=== PATIENT | female | born 1985 | race Caucasian/White ===

== ENCOUNTER 2016-11-29 16:01 | Emergency (ER) | payer MEDICAID ==
[~2016-11-29] VITALS: Ht 158.8 cm; Wt 57.5 kg
[~2016-11-29 16:01] MED LIST: BUSP10TA PO; IBUP400T20 PO
[2016-11-29 16:03] VITALS: BP 143/69; PULSE 106; RESP 16; TEMP 97.7; O2SAT 97
--- NOTE | 2016-11-29 16:25 | PD ---
Physical Exam Date Seen by Provider: Nov 29, 2016 Time Seen by Provider: 16:23 Narrative Pt is a 31 year old female presenting to the ED with c/o sinus pain, pressure, dull frontal headaches, congestion. Symptoms started a week ago. Pt has been taking OTC tylenol and excedrin. Pt denies any significant PMHx. VSS. Awaiting bed placement. Data Data Last Documented VS Vital Signs Date Time Temp Pulse Resp B/P Pulse Ox O2 Delivery O2 Flow Rate FiO2 11/29/16 16:03 97.7 106 16 143/69 97 Room Air MDM Supervised Visit with ANAND: Deneen Dangelo Nov 29, 2016 16:25
--- NOTE | 2016-11-29 16:30 | PD ---
HPI . sinus infection Chief Complaint: sinus pressure off and on for several weeks Time Seen by Provider: 16:30 Travel History International Travel<30 days: No Contact w/Intl Traveler<30days: No Traveled to known affect area: No History of Present Illness HPI 31-year-old female with history of allergies here with complaints of recurrent sinus pressure. Patient says she's been having intermittent sinus pressure for the past several weeks. She's been trying to take dgii-azf-wtxlfaj medications to improve her symptoms, but they have not been working. She tells me that her symptoms have become so severe that she's been having increased frequency of headaches and facial pressure. She denies any fever or chills. She has no other complaints. [facility] Past Medical History Diabetes: No Respiratory: No (NON SMOKER) LMP: LMP 14 NOVEMBER 2016 Menopausal: No : 3 Para: 1 Miscarriage: 0 : 2 Ectopic : No Ovarian Cysts: No Dilation and Curettage (D&C): No Tubal Ligation: No Past Surgical History Section: No Hysterectomy: No Other Surgery: Yes (HERNIA REPAIR) Social History Alcohol Use: Yes Tobacco Use: Yes Substance Use: Yes (IV DILAUDID) Allergies-Medications (Allergen,Severity, Reaction): Coded Allergies: Penicillin (Verified Allergy, Intermediate, 05/23/16) Reported Meds & Prescriptions Reported Meds & Active Scripts Active Zithromax Z-Rick (Azithromycin) 250 Mg Dspk 250 Mg PO DIRECTED 500 MG (2 tabs) day 1, then 1 tab days 2-5. Reported Ibuprofen 400 Mg Tab 400 Mg PO BID PRN Buspirone Hcl (Buspirone HCl) 10 Mg Tab 15 Mg PO TID Review of Systems General / Constitutional: No: Fever Eyes: No: Visual changes HENT: Positive: Congestion, No: Headaches Cardiovascular: No: Chest Pain or Discomfort Respiratory: Positive: Cough, No: Shortness of Breath Gastrointestinal: No: Abdominal Pain Genitourinary: No: Dysuria Musculoskeletal: No: Pain Skin: No Rash Neurologic: No: Weakness Psychiatric: No: Depression Endocrine: No: Polydipsia Hematologic/Lymphatic: No: Easy Bruising Physical Exam Narrative GENERAL: AAO x 3, no acute distress, Well-nourished, well-developed patient. SKIN: Warm and dry. No visible rashes or bruising. HEAD: Normocephalic and atraumatic. EYES: No scleral icterus. No injection or drainage. EOM intact, PERRLA ENT: No nasal drainage noted. Mucous membranes pink. Airway patent. TM with air bubbles, maxillary sinus tenderness, inflamed nasal turbinates NECK: Supple, trachea midline. No JVD. no lymphadenopathy CARDIOVASCULAR: Regular rate and rhythm without murmurs, gallops, or rubs. RESPIRATORY: Breath sounds equal bilaterally. No accessory muscle use. No rhonchi or rales. GASTROINTESTINAL: Abdomen soft, non-tender, nondistended. EXTREMITIES: No cyanosis or edema. BACK: Nontender without obvious deformity. No CVA tenderness. PSYCH: AAO x 3, normal affect. Data Data Last Documented VS Vital Signs Date Time Temp Pulse Resp B/P Pulse Ox O2 Delivery O2 Flow Rate FiO2 11/29/16 16:03 97.7 106 16 143/69 97 Room Air MDM Medical Decision Making Medical Screen Exam Complete: Yes Emergency Medical Condition: Yes Medical Record Reviewed: Yes Differential Diagnosis sinusitis, less likely bronchitis, less likely PNA Narrative Course 31-year-old female with history of allergies here with complaints of recurrent sinus pressure. Patient says she's been having intermittent sinus pressure for the past several weeks. She's been trying to take bahy-pvb-sguoosv medications to improve her symptoms, but they have not been working. She tells me that her symptoms have become so severe that she's been having increased frequency of headaches and facial pressure. She denies any fever or chills. She has no other complaints. Patient seen and examined. She appears to have acute sinusitis. She has penicillin allergy so we will go ahead and treat with azithromycin. She is taken in the past and tolerated well. Recommend antihistamine for the next 7 days. Explained that her symptoms will likely fluctuate based on the pollen in the air. Follow-up with primary care provider. Patient verbalized understanding of instructions, questions were answered, and thanked me for their care. I advised them if their condition worsens, please return to the nearest emergency room for further care. Diagnosis Primary Impression: Acute sinusitis Qualified Code: J01.01 - Acute recurrent maxillary sinusitis Patient Instructions: Sinusitis (ED) Additional Instructions: Please return to emergency department if your symptoms return or worsen. Follow up with your primary care provider. Take medications as prescribed. You can try an [id number]-tqducpn Claritin, Zyrtec or Manuela for the next 7 days. Med/Other Pt SpecificInfo: Prescription(s) given Scripts Azithromycin (Zithromax Z-Rick)250 Mg [id number] Mg PO DIRECTED #1 DSPK Ref 0 500 MG (2 tabs) day 1, then 1 tab days 2-5. Prov:Sandra Beltran DO 11/29/16 Disposition: 01 DISCHARGE HOME Condition: Stable Debra Sauceda Nov 29, 2016 16:30
[2016-11-29] MEDS ORDERED: ZITHTAB PO (16:33)
[2016-11-29] MEDS ORDERED: BUSP15TA PO (16:40)
[2016-11-29] MEDS ORDERED: TRAZ50TA12 PO (16:40)
[2016-11-29] MEDS ORDERED: ZOLO100T PO (16:40)
== END 2016-11-29 16:42 | disposition home or self-care (01) ==
LOC: NEPK 16:01
DX: J01.90 Acute sinusitis, unspecified (principal); Z72.0 Tobacco use
CPT/HCPCS: 99283

== ENCOUNTER 2017-01-17 09:35 | Emergency (ER) | payer MEDICAID ==
[~2017-01-17] VITALS: Ht 157.5 cm; Wt 57.0 kg
[~2017-01-17 09:35] MED LIST changes: -BUSP10TA PO; +BUSP15TA PO; -IBUP400T20 PO; +TRAZ50TA12 PO; +ZITHTAB PO; +ZOLO100T PO
[2017-01-17 09:36] VITALS: BP 118/76; PULSE 91; RESP 18; TEMP 98.5; O2SAT 98
[2017-01-17] MEDS ORDERED: CIPR-9 PO (09:50)
[2017-01-17] MEDS ORDERED: cefTRIAXone 250 MG VIAL IM ONE (10:15)
[2017-01-17] MEDS ORDERED: LIDOCAINE HCL 1% 50 ML VIAL IM ONE (10:15)
[2017-01-17] MEDS ORDERED: METR-1 PO (10:19)
[2017-01-17] MEDS ORDERED: ZITHTAB PO (10:19)
--- NOTE | 2017-01-17 10:19 | PD ---
HPI . 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 Onset was 4 days. She denies any pelvic pain or dyspareunia. States that the discharge is so bad that she's actually been using a tampon. In addition, the patient has a cough and sore throat. She has had that for about a week. She states that she was running a fever at the onset of her symptoms. She was in a detox facility at that time and was given Cipro. She has been taking the Cipro with no relief of her symptoms. She states that her throat pain is a 7/10. PFSH Past Medical History Depression: Yes Diabetes: No Patient Takes Glucophage: No Diminished Hearing: No Respiratory: No (NON SMOKER) Tetanus Vaccination: > 5 Years ?: Not LMP: 07 jan 2017 Menopausal: No : 4 Para: 1 Miscarriage: 1 : 2 Ectopic : No Ovarian Cysts: No Dilation and Curettage (D&C): No Tubal Ligation: No Past Surgical History Abdominal Surgery: Yes (hernia repair) Section: No Hysterectomy: No Other Surgery: Yes (HERNIA REPAIR) Social History Alcohol Use: No Tobacco Use: Yes (/ ppd) Substance Use: Yes (cocaine and opiates last January 12/2017) Allergies-Medications (Allergen,Severity, Reaction): Coded Allergies: Penicillin (Verified Allergy, Intermediate, 05/23/16) Reported Meds & Prescriptions Reported Meds & Active Scripts Active Reported Cipro (Ciprofloxacin HCl) 500 Mg Tab 500 Mg PO BID Zoloft (Sertraline HCl) 100 Mg Tab 100 Mg PO DAILY Buspirone (Buspirone HCl) 15 Mg Tab 15 Mg PO DAILY Trazodone (Trazodone HCl) 50 Mg Tab 50 Mg PO HS Review of Systems Except as stated in HPI: all other systems reviewed are Neg General / Constitutional: Positive: Fever, Chills HENT: Positive: Sore Throat Respiratory: Positive: Cough Genitourinary: Positive: Discharge, No: Urgency, Frequency, Dysuria, Pelvic Pain Physical Exam Narrative Vital Signs Date Time Temp Pulse Resp B/P Pulse Ox O2 Delivery O2 Flow Rate FiO2 6/7/17 09:36 98.5 91 18 118/76 98 Room Air GENERAL: Awake and alert and in no acute distress. SKIN: Warm and dry. HEAD: Atraumatic. Normocephalic. EYES: Pupils equal and round. ENT: No nasal bleeding or discharge. Mucous membranes pink and moist. She does have erythema of the oropharynx. There is no tonsillar enlargement or exudate. NECK: Trachea midline. Neck is supple. CARDIOVASCULAR: Regular rate and rhythm. Heart sounds are normal. RESPIRATORY: No accessory muscle use. Lungs are clear with full air movement throughout. GASTROINTESTINAL: Abdomen soft, non-tender, nondistended. : Yellow discharge from the cervical os. Positive cervical motion tenderness. Her bimanual exam however is benign. She has no adnexal tenderness or masses. MUSCULOSKELETAL: No obvious deformities. No edema. NEUROLOGICAL: Awake and alert. No obvious cranial nerve deficits. Motor grossly within normal limits. Normal speech. PSYCHIATRIC: Appropriate mood and affect; insight and judgment normal. Data Data Last Documented VS Vital Signs Date Time Temp Pulse Resp B/P Pulse Ox O2 Delivery O2 Flow Rate FiO2 01/17/17 09:36 98.5 91 18 118/76 98 Room Air MDM Medical Decision Making Medical Screen Exam Complete: Yes Emergency Medical Condition: Yes Differential Diagnosis Differential diagnosis of vaginal discharge includes but is not limited to physiologic discharge, yeast infection, bacterial vaginosis, sexually transmitted disease. Narrative Course Patient presents with 2 complaints. The first complaint is a purulent vaginal discharge. Exam is consistent with PID. Her second complaint is a cough and sore throat which have failed to improve with Cipro. I'll not test her for strep. She will be treated with Zithromax to cover chlamydia. This should also cover strep. Diagnosis Primary Impression: Pelvic inflammatory disease Additional Impressions: Pharyngitis Qualified Code: J02.9 - Pharyngitis, unspecified etiology Cough Patient Instructions: Acute Cough (ED), General Instructions, Pelvic Inflammatory Disease (DC), Pharyngitis (DC) Med/Other Pt SpecificInfo: Prescription(s) given, Med Stopped Scripts Metronidazole (Flagyl)500 Mg [id number] Mg PO BID 7 Days Ref 0 Prov:Cristina Diaz MD 01/17/17 Azithromycin (Zithromax Z-Rick)250 Mg [id number] Mg PO DIRECTED #1 DSPK Ref 0 500 MG (2 tabs) day 1, then 1 tab days 2-5. Prov:Cristina Diaz MD 01/17/17 Disposition: 01 DISCHARGE HOME Condition: Stable Cristina Diaz MD Jan 17, 2017 10:19
[2017-01-17 11:59] LABS: CHLAMYDIA PCR NOT DETECTED (NOT DETECT); NEISSERIA PCR NOT DETECTED (NOT DETECT)
== END 2017-01-17 10:53 | disposition home or self-care (01) ==
LOC: NEPD 09:35
DX: N73.9 Female pelvic inflammatory disease, unspecified (principal); J02.9 Acute pharyngitis, unspecified; R05 Cough; F17.210 Nicotine dependence, cigarettes, uncomplicated; Z88.0 Allergy status to penicillin
CPT/HCPCS: 84703; 87210; 87491; 87591; 96372; 99284; J0696

== ENCOUNTER 2017-01-21 16:49 | Emergency (ER) | payer MEDICAID ==
[~2017-01-21] VITALS: Ht 152.4 cm; Wt 57.0 kg
[~2017-01-21 16:49] MED LIST changes: +METR-1 PO
[2017-01-21 16:51] VITALS: BP 105/61; PULSE 75; TEMP 97.9; O2SAT 98
[2017-01-21] MEDS ORDERED: SODIUM CHLORIDE 0.9% FLUSH 10 ML FLUSH IV FLUSH PRN (17:15)
--- NOTE | 2017-01-21 17:21 | PD ---
HPI Chief Complaint: Abdominal Pain Time Seen by Provider: 17:12 Travel History International Travel<30 days: No Contact w/Intl Traveler<30days: No Traveled to known affect area: No History of Present Illness HPI 31-year-old female patient with recent history of PID still currently on antibiotics, presents to the ER today from rehabilitation because she complained of right upper quadrant abdominal pains which she currently states is a 5 out of 10. She denies any nausea, vomiting, or other symptoms. She apparently was sent in by Dr. singleton for further evaluation. She now states it is not that bad and states that she does not feel it is an issue. 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 Reported Zoloft (Sertraline HCl) 100 Mg Tab 100 Mg PO DAILY Buspirone (Buspirone HCl) 15 Mg Tab 15 Mg PO DAILY Trazodone (Trazodone HCl) 50 Mg Tab 50 Mg PO HS Review of Systems Except as stated in HPI: all other systems reviewed are Neg Physical Exam Narrative GENERAL: Young well-developed white female patient currently in no acute distress. Awake and oriented 3. SKIN: Focused skin assessment warm/dry. HEAD: Atraumatic. Normocephalic. EYES: Pupils equal and round. No scleral icterus. No injection or drainage. ENT: No nasal bleeding or discharge. Mucous membranes pink and moist. NECK: Trachea midline. No JVD. CARDIOVASCULAR: Regular rate and rhythm. No murmur appreciated. RESPIRATORY: No accessory muscle use. Clear to auscultation. Breath sounds equal bilaterally. GASTROINTESTINAL: Abdomen soft, mild right upper quadrant tenderness without guarding or rebound, nondistended. Hepatic and splenic margins not palpable. MUSCULOSKELETAL: No obvious deformities. No clubbing. No cyanosis. No edema. NEUROLOGICAL: Awake and alert. No obvious cranial nerve deficits. Motor grossly within normal limits. Normal speech. PSYCHIATRIC: Appropriate mood and affect; insight and judgment normal. Data Data Last Documented VS Vital Signs Date Time Temp Pulse Resp B/P Pulse Ox O2 Delivery O2 Flow Rate FiO2 01/21/17 16:51 97.9 75 105/61 98 Orders Complete Blood Count With Diff (01/21/17 17:13) Comprehensive Metabolic Panel (01/21/17 17:13) Lipase (01/21/17 17:13) Urinalysis - C+S If Indicated (01/21/17 17:13) Iv Access Insert/Monitor (01/21/17 17:13) Ecg Monitoring (01/21/17 17:13) Oximetry (01/21/17 17:13) Sodium Chloride 0.9% Flush (Ns Flush) (01/21/17 17:15) Ed Urine Pregnancytest Poc (01/21/17 17:13) Labs Laboratory Tests Test 01/21/17 01/21/17 17:15 17:25 White Blood Count 5.9 TH/MM3 Red Blood Count 4.27 MIL/MM3 Hemoglobin 12.4 GM/DL Hematocrit 37.1 % Mean Corpuscular Volume 86.7 FL Mean Corpuscular Hemoglobin 29.0 PG Mean Corpuscular Hemoglobin 33.4 % Concent Red Cell Distribution Width 13.1 % Platelet Count 404 TH/MM3 Mean Platelet Volume 9.8 FL Neutrophils (%) (Auto) 59.7 % Lymphocytes (%) (Auto) 29.1 % Monocytes (%) (Auto) 8.8 % Eosinophils (%) (Auto) 1.6 % Basophils (%) (Auto) 0.8 % Neutrophils # (Auto) 3.5 TH/MM3 Lymphocytes # (Auto) 1.7 TH/MM3 Monocytes # (Auto) 0.5 TH/MM3 Eosinophils # (Auto) 0.1 TH/MM3 Basophils # (Auto) 0.0 TH/MM3 CBC Comment DIFF FINAL Differential Comment Sodium Level 141 MEQ/L Potassium Level 3.3 MEQ/L Chloride Level 104 MEQ/L Carbon Dioxide Level 30.2 MEQ/L Anion Gap 7 MEQ/L Blood Urea Nitrogen 12 MG/DL Creatinine 0.57 MG/DL Estimat Glomerular Filtration 125 ML/MIN Rate Random Glucose 85 MG/DL Calcium Level 9.1 MG/DL Total Bilirubin 0.3 MG/DL Aspartate Amino Transf 16 U/L (AST/SGOT) Alanine Aminotransferase 18 U/L (ALT/SGPT) Alkaline Phosphatase 60 U/L Total Protein 7.6 GM/DL Albumin 3.0 GM/DL Lipase 225 U/L Urine Color LIGHT-RED Urine Turbidity CLOUDY Urine pH 7.0 Urine Specific Gate 1.023 Urine Protein 30 mg/dL Urine Glucose (UA) NEG mg/dL Urine Ketones NEG mg/dL Urine Occult Blood NEG Urine Nitrite NEG Urine Bilirubin NEG Urine Urobilinogen LESS THAN 2.0 MG/DL Urine Leukocyte Esterase SMALL Urine RBC 6 /hpf Urine WBC 4 /hpf Urine Squamous Epithelial 47 /hpf Cells Urine Bacteria OCC /hpf Urine Mucus MANY /lpf Microscopic Urinalysis Comment CULT NOT INDICATED MDM Medical Decision Making Medical Screen Exam Complete: Yes Emergency Medical Condition: Yes Medical Record Reviewed: Yes Interpretation(s) Laboratory Tests Test 01/21/17 01/21/17 17:15 17:25 Monocytes (%) (Auto) 8.8 % (0.0-8.0) Potassium Level 3.3 MEQ/L (3.5-5.1) Albumin 3.0 GM/DL (3.4-5.0) Urine Color LIGHT-RED (YELLW/STRAW) Urine Turbidity CLOUDY (CLEAR) Urine Protein 30 mg/dL (NEG-TRACE) Urine Leukocyte Esterase SMALL (NEG) Urine RBC 6 /hpf (0-3) Urine Bacteria OCC /hpf (NONE) Urine Mucus MANY /lpf (OCC) Differential Diagnosis Right upper quadrant paincholecystitis versus gastroenteritis versus muscular skeletal Narrative Course Patient now denies pain. Abdomen is fairly benign. Lab work did not show any signs of leukocytosis or signs of liver enzyme elevation. I talked to Dr. singleton who had evaluated the patient as well and states that on initial exam, he feels that her abdomen was fairly benign as well. At this point, patient states that she is not having significant pain. My plan would be to release her with follow-up to primary care physician or physician a facility. Return for any signs of worsening in symptoms. The plan was discussed with her and she states understanding. Diagnosis Primary Impression: Abdominal pain Disposition: 01 DISCHARGE HOME Condition: Stable John Paul Anthony MD Jan 21, 2017 17:21
[2017-01-21 17:41] LABS: AUTOMATED NEUTROPHIL # 3.5 TH/MM3 (1.8-7.7); BASOPHIL % 0.8 % (0.0-2.0); EOSINOPHIL # 0.1 TH/MM3 (0-0.4); EOSINOPHIL % 1.6 % (0.0-4.0); HEMATOCRIT 37.1 % (35.0-46.0); HEMO FLAGS DIFF FINAL; LYMPH % 29.1 % (9.0-44.0); LYMPHOCYTE # 1.7 TH/MM3 (1.0-4.8); MEAN CELL VOLUME 86.7 FL (80.0-100.0); MEAN CORPUSCULAR HGB CONC 33.4 % (32.0-36.0); MONO % 8.8 % (0.0-8.0); NEUT % 59.7 % (16.0-70.0); PLATELET COUNT 404 TH/MM3 (150-450); RED BLOOD COUNT 4.27 MIL/MM3 (4.00-5.30); RED CELL DISTRIBUTION WIDTH 13.1 % (11.6-17.2); WHITE BLOOD COUNT 5.9 TH/MM3 (4.0-11.0)
[2017-01-21 17:45] LABS: BACTERIA, URINE OCC /hpf; BLOOD, URINE NEG (NEG); COMMENT (UR) CULT NOT INDICATED; CULTURE IF INDICATED CULT NOT INDICATED; GLUCOSE,URINE NEG (NEG); KETONE, URINE NEG (NEG); MUCUS URINE MANY /lpf (OCC); NITRITE,URINE NEG (NEG); SQUAMOUS EPITHELIAL CELL URINE 47 /hpf (0-5); URINE COLOR LIGHT-RED (YELLW/STRAW)
[2017-01-21 18:13] LABS: ALT (GPT) 18 U/L (10-53); ANION GAP 7 MEQ/L (5-15); AST (GOT) 16 U/L (15-37); BICARBONATE 30.2 MEQ/L (21.0-32.0); BLOOD UREA NITROGEN 12 MG/DL (7-18); CHLORIDE 104 MEQ/L (98-107); GLOMERULAR FILTRATION RATE 125 ML/MIN (>89); POTASSIUM 3.3 MEQ/L (3.5-5.1); SODIUM (NA) 141 MEQ/L (136-145)
[2017-01-21 18:16] LABS: ALKALINE PHOSPHATASE 60 U/L (45-117); TOTAL BILIRUBIN ADULT 0.3 MG/DL (0.2-1.0)
[2017-01-21 19:03] VITALS: BP 106/65
== END 2017-01-21 19:04 | disposition home or self-care (01) ==
LOC: NEPC 16:49
DX: R10.9 Unspecified abdominal pain (principal)
CPT/HCPCS: 80053; 81001; 83690; 85025; 99283

== ENCOUNTER 2017-05-04 14:37 | Inpatient (IN) | payer MEDICAID ==
[~2017-05-04] VITALS: Ht 157.5 cm; Wt 54.7 kg
[2017-05-04 14:40] VITALS: BP 134/84; PULSE 76; RESP 14; TEMP 102; O2SAT 99
--- NOTE | 2017-05-04 15:09 | PD ---
Physical Exam Time Seen by Provider: 15:06 Narrative 32-year-old female with complaint of left third toe infection, left buttock abscess and left fourth finger infection 4 days. Reports IV drug use. Reports subjective fever at home. Patient febrile in the ER with temperature of 102.0. Reports nausea without vomiting. Patient seen in triage. Vital signs reviewed. Patient awaiting bed placement. Data Data Last Documented VS Vital Signs Date Time Temp Pulse Resp B/P (MAP) Pulse Ox O2 Delivery O2 Flow Rate FiO2 05/04/17 14:40 102.0 76 14 134/84 (101) 99 MDM Supervised Visit with ANAND: Aisha Manzo May 04, 2017 15:09
--- NOTE | 2017-05-04 15:51 | RADRPT ---
EXAM DATE/TIME: 05/04/2017 15:33 [facility] COMPARISON: No previous studies available for comparison. INDICATIONS : Fever MEDICAL HISTORY : None. SURGICAL HISTORY : Umbilical hernia repair. ENCOUNTER: Initial ACUITY: 1 day PAIN SCORE: 0/10 LOCATION: Bilateral chest FINDINGS: PA and lateral views of the chest demonstrate the lungs to be symmetrically aerated without evidence of mass, infiltrate or effusion. The cardiomediastinal contours are unremarkable. Osseous structure s are demonstrate a rotatory scoliosis. CONCLUSION: 1. Rotatory scoliosis. The lungs are clear. John Stephens MD on May 04, 2017 at 15:49 Board Certified Radiologist. This report was verified electronically.
[2017-05-04 16:47] LABS: AUTOMATED NEUTROPHIL # 19.9 TH/MM3 (1.8-7.7); BASOPHIL % 0.1 % (0.0-2.0); EOSINOPHIL # 0.1 TH/MM3 (0-0.4); EOSINOPHIL % 0.3 % (0.0-4.0); HEMATOCRIT 37.3 % (35.0-46.0); HEMO FLAGS DIFF FINAL; LYMPH % 5.6 % (9.0-44.0); LYMPHOCYTE # 1.3 TH/MM3 (1.0-4.8); MEAN CELL VOLUME 85.9 FL (80.0-100.0); MEAN CORPUSCULAR HEMOGLOBIN 28.8 PG (27.0-34.0); MEAN CORPUSCULAR HGB CONC 33.5 % (32.0-36.0); MONO % 5.3 % (0.0-8.0); NEUT % 88.7 % (16.0-70.0); PLATELET COUNT 340 TH/MM3 (150-450); RED BLOOD COUNT 4.35 MIL/MM3 (4.00-5.30); RED CELL DISTRIBUTION WIDTH 13.3 % (11.6-17.2); WHITE BLOOD COUNT 22.4 TH/MM3 (4.0-11.0)
[2017-05-04] MEDS ORDERED: SODIUM CHLOR 0.9% 1000 ML INJ 1,000 ML IV ONE ×2 (17:00)
[2017-05-04] MEDS ORDERED: ACETAMINOPHEN/HYDROcodone 325 MG/5 MG TAB PO ONE (17:00)
[2017-05-04] MEDS ORDERED: MORPHINE SULFATE 4 MG/ML INJ IV PUSH ONE (17:00)
[2017-05-04] MEDS ORDERED: KETOROLAC TROMETHAMINE 30 MG/ML (IVP) VIAL IV PUSH ONE (17:00)
--- NOTE | 2017-05-04 17:11 | PD ---
HPI Chief Complaint: Skin Problem Time Seen by Provider: 15:38 Travel History International Travel<30 days: No Contact w/Intl Traveler<30days: No Traveled to known affect area: No History of Present Illness HPI 32 YO F with PMH of IVDA presents to the ED for evaluation of 4 day history of pain, swelling, redness of the left buttock, left 3rd toe and left 4th finger. She endorses chills, has not measured a fever at home. She endorses nausea, denies vomiting. Patient's been treating with warm compresses no improvement of symptoms. Patient states last IVDA use was yesterday. PFSH Past Medical History Depression: Yes Diabetes: No Diminished Hearing: No Respiratory: No (NON SMOKER) ?: Not LMP: 03/14/17 Menopausal: No : 4 Para: 1 Miscarriage: 1 : 2 Ectopic : No Ovarian Cysts: No Dilation and Curettage (D&C): No Tubal Ligation: No Past Surgical History Abdominal Surgery: Yes (hernia) Section: No Hysterectomy: No Other Surgery: Yes (HERNIA REPAIR) Social History Alcohol Use: No Tobacco Use: Yes (1ppd 3 days ago) Substance Use: Yes (cocaine heroin ) Allergies-Medications (Allergen,Severity, Reaction): Coded Allergies: penicillin G (Unverified Allergy, Intermediate, 05/04/17) Reported Meds & Prescriptions Reported Meds & Active Scripts Active No Active Prescriptions or Reported Medications Review of Systems Except as stated in HPI: all other systems reviewed are Neg Physical Exam Narrative GENERAL: Well-nourished, well-developed anxious white female in no acute distress. SKIN: Focused skin assessment warm/dry. Large warm, erythematous, tender cellulitic area in the left buttock. No fluctuance. No pointing. This does not communicate with the perineum. Multiple subcentimeter wounds scattered over the skin surface without signs of infection. 2 small wounds on the third digit of the left toe with cellulitic streaking to the mid ramirez. HEAD: Normocephalic. EYES: No scleral icterus. No injection or drainage. NECK: Supple, trachea midline. No JVD or lymphadenopathy. CARDIOVASCULAR: Regular rate and rhythm without murmurs, gallops, or rubs. RESPIRATORY: Breath sounds clear and equal bilaterally. No accessory muscle use. GASTROINTESTINAL: Abdomen soft, non-tender, nondistended. MUSCULOSKELETAL: No cyanosis, or edema. Patient retains fulls, active ROM of all extremities. BACK: Nontender without obvious deformity. No CVA tenderness. Data Data Last Documented VS Vital Signs Date Time Temp Pulse Resp B/P (MAP) Pulse Ox O2 Delivery O2 Flow Rate FiO2 05/04/17 18:23 100 20 102/61 (75) 100 05/04/17 18:23 Room Air 05/04/17 14:40 102.0 Orders Orders Complete Blood Count With Diff (05/04/17 15:09) Comprehensive Metabolic Panel (05/04/17 15:09) Lactic Acid Sepsis Protocol (05/04/17 15:09) Urinalysis - C+S If Indicated (05/04/17 15:09) Blood Culture (05/04/17 15:09) Ecg Monitoring (05/04/17 15:09) Iv Access Insert/Monitor (05/04/17 15:09) Oximetry (05/04/17 15:09) Oxygen Administration (05/04/17 15:09) Chest, Pa & Lat (05/04/17 15:09) Sodium Chlor 0.9% 1000 Ml Inj (Ns 1000 M (05/04/17 17:00) Wound Culture And Gram Stain (05/04/17 16:53) Ketorolac Inj (Toradol Inj) (05/04/17 17:00) Acetamin-Hydrocod 325-5 Mg ([place] 5-325 (05/04/17 17:00) Morphine Inj (Morphine Inj) (05/04/17 17:00) Sodium Chlor 0.9% 1000 Ml Inj (Ns 1000 M (05/04/17 17:00) Ct Pelvis W Iv Contrast(Rout) (05/04/17 ) Potassium Chloride (Kcl) (05/04/17 18:00) Electrocardiogram (05/04/17 ) Iohexol 350 Inj (Omnipaque 350 Inj) (05/04/17 18:13) Vancomycin Inj (Vancomycin Inj) (05/04/17 18:19) Aztreonam Inj (Azactam Inj) (05/04/17 18:19) Metronidazole 500 Mg Inj (Flagyl 500 Mg (05/04/17 18:19) Comprehensive Metabolic Panel (05/04/17 18:59) Hydromorphone Pf Inj (Dilaudid Pf Inj) (05/04/17 19:00) Consult General Surgery (05/04/17 ) Toe (Min 2vws) (05/04/17 19:04) Admit Order (Ed Use Only) (05/04/17 19:20) Labs Laboratory Tests Test 05/04/17 16:25 White Blood Count 22.4 TH/MM3 Red Blood Count 4.35 MIL/MM3 Hemoglobin 12.5 GM/DL Hematocrit 37.3 % Mean Corpuscular Volume 85.9 FL Mean Corpuscular Hemoglobin 28.8 PG Mean Corpuscular Hemoglobin Concent 33.5 % Red Cell Distribution Width 13.3 % Platelet Count 340 TH/MM3 Mean Platelet Volume 10.1 FL Neutrophils (%) (Auto) 88.7 % Lymphocytes (%) (Auto) 5.6 % Monocytes (%) (Auto) 5.3 % Eosinophils (%) (Auto) 0.3 % Basophils (%) (Auto) 0.1 % Neutrophils # (Auto) 19.9 TH/MM3 Lymphocytes # (Auto) 1.3 TH/MM3 Monocytes # (Auto) 1.2 TH/MM3 Eosinophils # (Auto) 0.1 TH/MM3 Basophils # (Auto) 0.0 TH/MM3 CBC Comment DIFF FINAL Differential Comment Blood Urea Nitrogen 5 MG/DL Creatinine 0.64 MG/DL Random Glucose 102 MG/DL Total Protein 8.1 GM/DL Albumin 3.0 GM/DL Calcium Level 9.2 MG/DL Alkaline Phosphatase 107 U/L Aspartate Amino Transf (AST/SGOT) 22 U/L Alanine Aminotransferase (ALT/SGPT) 29 U/L Total Bilirubin 1.0 MG/DL Sodium Level 124 MEQ/L Potassium Level 2.3 MEQ/L Chloride Level 88 MEQ/L Carbon Dioxide Level 30.2 MEQ/L Anion Gap 6 MEQ/L Estimat Glomerular Filtration Rate 108 ML/MIN Lactic Acid Level 1.3 mmol/L MDM Medical Decision Making Medical Screen Exam Complete: Yes Emergency Medical Condition: Yes Differential Diagnosis Abscess versus cellulitis versus osteomyelitis versus sepsis versus endocarditis versus other Narrative Course 32 YO F with PMH of IVDA presents to the ED for evaluation of 4 day history of pain, swelling, redness of the left buttock, left 3rd toe and left 4th finger. She endorses chills, has not measured a fever at home. She endorses nausea, denies vomiting. Patient's been treating with warm compresses no improvement of symptoms. Patient states last IVDA use was yesterday. Patient at 102 on presentation. Physical exam reveals an anxious white female in no acute distress. There is large cellulitic area of the left buttock that does not communicate to the perineum. Patient has 2 small wounds of the left toe and cellulitic streaking to the mid ramirez. IV was established. Blood cultures were obtained. Patient was administered 2 L normal saline, IV morphine, IV Toradol and by mouth Lortab. EKG rate 95, sinus rhythm. KS interval 133, QRS 91, QTC 372 ms. Normal axis. No acute ST changes. Reviewed by Dr. Pringle. CBC showed leukocytosis 22.4 with a left shift. CMP with deficits of sodium and potassium. Patient was administered 40 mg potassium by mouth. We'll redraw the CMP for evaluation. Lactic acid 1.3. Vancomycin, aztreonam and doxycycline were initiated. The patient meets sepsis criteria. I discussed the workup with the patient who is agreeable to admission. She's still complaining of pain and was administered 0.5 mg Dilaudid. General surgery consult placed. Dr. Pringle spoke with Dr. Moore who agrees to accept the patient to the medicine service. Please see medicine notes for disposition. Sepsis Criteria SIRS Criteria (2 or more): Temp > 100.9 or < 96.8, Heart rate over 90, WBC > 23581, < 4000 or > 10% bands Sepsis Criteria (SIRS+source): Infect source susp/known Criteria Outcome: Meets SIRS criteria, Meets sepsis criteria Scripts No Active Prescriptions or Reported Meds Joanne Nunez May 04, 2017 17:11
[2017-05-04 17:41] LABS: ALKALINE PHOSPHATASE 107 U/L (45-117); ALT (GPT) 29 U/L (10-53); ANION GAP 6 MEQ/L (5-15); AST (GOT) 22 U/L (15-37); BICARBONATE 30.2 MEQ/L (21.0-32.0); BLOOD UREA NITROGEN 5 MG/DL (7-18); CHLORIDE 88 MEQ/L (98-107); GLOMERULAR FILTRATION RATE 108 ML/MIN (>89)
[2017-05-04 17:46] LABS: POTASSIUM 2.3 MEQ/L (3.5-5.1); SODIUM (NA) 124 MEQ/L (136-145)
[2017-05-04] MEDS ORDERED: POTASSIUM CHLORIDE 20 MEQ CONTROLLED RELEASE TAB PO ONE (18:00)
[2017-05-04] MEDS ORDERED: IOHEXOL 350 MG/ML 10 ML VIAL (for RAD DIAG) IVCONTRAST ONE (18:13)
[2017-05-04] MEDS ORDERED: AZTREONAM INJ 2,000 MG in SODIUM CHLORIDE 0.9% INJ 100 ML IV STA (18:19)
[2017-05-04] MEDS ORDERED: VANCOMYCIN INJ 1,000 MG in SODIUM CHLOR 0.9% 250 ML INJ 250 ML IV STA (18:19)
[2017-05-04] MEDS ORDERED: metroNIDAZOLE 500 MG INJ 100 ML IV STA (18:19)
[2017-05-04 18:23] VITALS: BP 102/61; PULSE 100; RESP 20; O2SAT 100
--- NOTE | 2017-05-04 18:45 | RADRPT ---
EXAM DATE/TIME: 05/04/2017 17:50 [facility] COMPARISON: No previous studies available for comparison. INDICATIONS : Left buttock abscess. IV CONTRAST: 69 cc Omnipaque 350 (iohexol) IV ORAL CONTRAST: No oral contrast ingested. RADIATION DOSE: 10.55 CTDIvol (mGy) MEDICAL HISTORY : Hepatitis C. IV drug abuse SURGICAL HISTORY : Umbilical hernia repair. ENCOUNTER: Initial ACUITY: 2 days PAIN SCALE: 4/10 LOCATION: Left buttock TECHNIQUE: Volumetric scanning of the pelvis was performed. Using automated exposure control and adjustment of t he mA and/or kV according to patient size, radiation dose was kept as low as reasonably achievable to obtain optimal diagnostic quality images. DICOM format image data is available electronically for review and comparison. FINDINGS: There is diffuse cellulitis involving the left buttock. Induration is noted involving the perineum o n the left with possible underlying inflammatory change within the left perianal/perilabia region. G ynecologic evaluation is recommended. No definite significant abscess collection is identified. The uterus is unremarkable. The urinary bladder is normal. The ovaries are normal in size bilateral ly. There is no bowel obstruction. Ventral abdominal wall hernia with mesh is noted. no pelvis lym phadenopathy is noted. The visualized vascular structures are unremarkable. The bony structures are also unremarkable. CONCLUSION: 1. Diffuse cellulitis of the left buttock as well as induration and swelling of the left perineum in the region of the perianal/perilabia tissues. Gynecologic evaluation would be helpful for further e valuation. No definite drainable abscess is confirmed. Leif Vallejo MD on May 04, 2017 at 18:20 Board Certified Radiologist. This report was verified electronically.
--- NOTE | 2017-05-04 18:58 | PD ---
Data Data Last Documented VS Vital Signs Date Time Temp Pulse Resp B/P (MAP) Pulse Ox O2 Delivery O2 Flow Rate FiO2 05/04/17 18:23 100 20 102/61 (75) 100 05/04/17 18:23 Room Air 05/04/17 14:40 102.0 Orders Orders Complete Blood Count With Diff (05/04/17 15:09) Comprehensive Metabolic Panel (05/04/17 15:09) Lactic Acid Sepsis Protocol (05/04/17 15:09) Urinalysis - C+S If Indicated (05/04/17 15:09) Blood Culture (05/04/17 15:09) Ecg Monitoring (05/04/17 15:09) Iv Access Insert/Monitor (05/04/17 15:09) Oximetry (05/04/17 15:09) Oxygen Administration (05/04/17 15:09) Chest, Pa & Lat (05/04/17 15:09) Sodium Chlor 0.9% 1000 Ml Inj (Ns 1000 M (05/04/17 17:00) Blood Culture (05/04/17 16:53) Wound Culture And Gram Stain (05/04/17 16:53) Ketorolac Inj (Toradol Inj) (05/04/17 17:00) Acetamin-Hydrocod 325-5 Mg ([place] 5-325 (05/04/17 17:00) Morphine Inj (Morphine Inj) (05/04/17 17:00) Sodium Chlor 0.9% 1000 Ml Inj (Ns 1000 M (05/04/17 17:00) Ct Pelvis W Iv Contrast(Rout) (05/04/17 ) Potassium Chloride (Kcl) (05/04/17 18:00) Electrocardiogram (05/04/17 ) Iohexol 350 Inj (Omnipaque 350 Inj) (05/04/17 18:13) Vancomycin Inj (Vancomycin Inj) (05/04/17 18:19) Aztreonam Inj (Azactam Inj) (05/04/17 18:19) Metronidazole 500 Mg Inj (Flagyl 500 Mg (05/04/17 18:19) Comprehensive Metabolic Panel (05/04/17 18:59) Hydromorphone Pf Inj (Dilaudid Pf Inj) (05/04/17 19:00) Labs Laboratory Tests Test 9/22/17 16:25 White Blood Count 22.4 TH/MM3 Red Blood Count 4.35 MIL/MM3 Hemoglobin 12.5 GM/DL Hematocrit 37.3 % Mean Corpuscular Volume 85.9 FL Mean Corpuscular Hemoglobin 28.8 PG Mean Corpuscular Hemoglobin Concent 33.5 % Red Cell Distribution Width 13.3 % Platelet Count 340 TH/MM3 Mean Platelet Volume 10.1 FL Neutrophils (%) (Auto) 88.7 % Lymphocytes (%) (Auto) 5.6 % Monocytes (%) (Auto) 5.3 % Eosinophils (%) (Auto) 0.3 % Basophils (%) (Auto) 0.1 % Neutrophils # (Auto) 19.9 TH/MM3 Lymphocytes # (Auto) 1.3 TH/MM3 Monocytes # (Auto) 1.2 TH/MM3 Eosinophils # (Auto) 0.1 TH/MM3 Basophils # (Auto) 0.0 TH/MM3 CBC Comment DIFF FINAL Differential Comment Blood Urea Nitrogen 5 MG/DL Creatinine 0.64 MG/DL Random Glucose 102 MG/DL Total Protein 8.1 GM/DL Albumin 3.0 GM/DL Calcium Level 9.2 MG/DL Alkaline Phosphatase 107 U/L Aspartate Amino Transf (AST/SGOT) 22 U/L Alanine Aminotransferase (ALT/SGPT) 29 U/L Total Bilirubin 1.0 MG/DL Sodium Level 124 MEQ/L Potassium Level 2.3 MEQ/L Chloride Level 88 MEQ/L Carbon Dioxide Level 30.2 MEQ/L Anion Gap 6 MEQ/L Estimat Glomerular Filtration Rate 108 ML/MIN Lactic Acid Level 1.3 mmol/L [facility] Supervised Visit with ANAND: Yes Differential Diagnosis Cellulitis, abscess, necrotizing fasciitis, severe sepsis Narrative Course This is a 32-year-old female who has a history of IV drug use who presents to the emergency department with pain involving her left buttock that's been progressing over the past 4 days. On physical exam she has a tense fluctuant area over the left buttock that extends to the perirectal area. There is no involvement of the labia.. I don't appreciate any crepitus. She septic with a leukocytosis of 22. Her lactic acid is normal. I suspect she has an abscess in the gluteal area. She was covered with broad-spectrum antibiotics. CT imaging was obtained which demonstrates no gas. I don't think this is Damaso' s gangrene although I did consider it. She has some mild inflammation of the labia majora on the left but her perineum is non-tender and her focused infection is in the gluteal area. I think the nidus of her infection is in the buttock area and I think she does require general surgery for incision and drainage. Pt. will be admitted for IV antibiotics. Scripts No Active Prescriptions or Reported Meds Lupe Pringle MD May 04, 2017 18:58
[2017-05-04] MEDS ORDERED: HYDROmorphone HCL PF 1 MG/ML VIAL IV PUSH ONE (19:00)
--- NOTE | 2017-05-04 19:40 | HHI.HP ---
HPI Service [facility] Primary Care Physician Rula Francisco MD Admission Diagnosis cellulitis left buttock Diagnoses: (1) Sepsis Diagnosis: Principal (2) Cellulitis and abscess of buttock Diagnosis: Principal (3) Lower extremity cellulitis Diagnosis: Principal (4) Hypokalemia Diagnosis: Principal (5) IVDU (intravenous drug user) Diagnosis: Principal (6) Tobacco abuse Diagnosis: Principal Travel History International Travel<30 Days: No Contact w/Intl Traveler <30 Da: No Traveled to Known Affected Are: No History of Present Illness This is a 32-year-old female with a PMH of IVDU and Tobacco Abuse presented to the ER with complaints of significant pain and redness to her left buttock addition to similar symptoms involving her left foot and left hand. Admits to ongoing IVDU with Cocaine and Heroin. Reports subjective fever/chills. On arrival, BP 102/61, HR 100, O2 sat 100% on RA, Temp 102.0. WBC 22.4. K+ 2.8. CXR with no acute findings. CT Pelvis with diffuse cellulitis of left buttock and induration and swelling of left perineum. Toe X-ray was soft tissue swelling involving left third digit, no acute fracture noted. On exam, patient noted to have no significant involvement of the perineum worrisome for Damaso' s. S/p Blood Cultures, Vanc/Azactam/Flagyl in ER. Review of Systems Except as stated in HPI: all other systems reviewed are Neg ROS: 14 point review of systems otherwise negative. Past Family Social History Past Medical History PMH: Past Surgical History PAST SURGICAL HISTORY: Hernia Repair Allergies: Coded Allergies: penicillin G (Unverified Allergy, Intermediate, 05/04/17) Family History PAST FAMILY HISTORY: Reviewed. No h/o DM or CAD Social History PAST SOCIAL HISTORY: Negative for alcohol. Smokes 1ppd. +IVDU Cocaine/Heroin. Physical Exam Vital Signs Vital Signs Date Time Temp Pulse Resp B/P (MAP) Pulse Ox O2 Delivery O2 Flow Rate FiO2 05/04/17 18:23 100 20 102/61 (75) 100 05/04/17 18:23 99 Room Air 05/04/17 18:23 100 20 102/61 (75) 100 Room Air 05/04/17 15:42 20 05/04/17 14:40 102.0 76 14 134/84 (101) 99 Physical Exam PE: GENERAL: Young white female in no acute distress. HEENT: PERRLA, EOMI. No scleral icterus or conjunctival pallor. No lid lag or facial droop. CARDIOVASCULAR: Regular rate and rhythm. No obvious murmurs to auscultation. No chest tenderness to palpation. RESPIRATORY: No obvious rhonchi or wheezing. Clear to auscultation. Breath sounds equal bilaterally. GASTROINTESTINAL: Abdomen soft, non-tender, nondistended. BS normal. MUSCULOSKELETAL: Extremities without clubbing, cyanosis, or edema. No obvious deformities. Left buttock cellulitis, +tenderness, no open lesions. Left 3rd toe cellulitis w/ streaking NEUROLOGICAL: Awake, alert and oriented x4. No focal neurologic deficits. Moving both upper and lower extremities spontaneously. Laboratory Laboratory Tests Test 05/04/17 16:25 White Blood Count 22.4 Red Blood Count 4.35 Hemoglobin 12.5 Hematocrit 37.3 Mean Corpuscular Volume 85.9 Mean Corpuscular Hemoglobin 28.8 Mean Corpuscular Hemoglobin Concent 33.5 Red Cell Distribution Width 13.3 Platelet Count 340 Mean Platelet Volume 10.1 Neutrophils (%) (Auto) 88.7 Lymphocytes (%) (Auto) 5.6 Monocytes (%) (Auto) 5.3 Eosinophils (%) (Auto) 0.3 Basophils (%) (Auto) 0.1 Neutrophils # (Auto) 19.9 Lymphocytes # (Auto) 1.3 Monocytes # (Auto) 1.2 Eosinophils # (Auto) 0.1 Basophils # (Auto) 0.0 CBC Comment DIFF FINAL Differential Comment Blood Urea Nitrogen 5 Creatinine 0.64 Random Glucose 102 Total Protein 8.1 Albumin 3.0 Calcium Level 9.2 Alkaline Phosphatase 107 Aspartate Amino Transf (AST/SGOT) 22 Alanine Aminotransferase (ALT/SGPT) 29 Total Bilirubin 1.0 Sodium Level 124 Potassium Level 2.3 Chloride Level 88 Carbon Dioxide Level 30.2 Anion Gap 6 Estimat Glomerular Filtration Rate 108 Lactic Acid Level 1.3 Date/Time Source Procedure Growth Status 05/04/17 16:30 Blood Peripheral Aerobic Blood Culture Pending Received 05/04/17 16:30 Blood Peripheral Anaerobic Blood Culture Pending Received Result Diagram: 05/04/17 1625 05/04/17 1625 Caprini VTE Risk Assessment Caprini VTE Risk Assessment: Mod/High Risk (score >= 2) Caprini Risk Assessment Model Point Value = 1 Point Value = 2 Point Value = 3 Point Value = 5 Age 41-60 Minor surgery BMI > 25 kg/m2 Swollen legs Varicose veins or History of unexplained or recurrent spontaneous Oral contraceptives or hormone replacement Sepsis (< 1 month) Serious lung disease, including pneumonia (< 1 month) Abnormal pulmonary function Acute myocardial infarction Congestive heart failure (< 1 month) History of inflammatory bowel disease Medical patient at bed rest Age 61-74 Arthroscopic surgery Major open surgery (> 45 min) Laparoscopic surgery (> 45 min) Malignancy Confined to bed (> 72 hours) Immobilizing plaster cast Central venous access Age >= 75 History of VTE Family history of VTE Factor V Leiden Prothrombin [id number] Lupus anticoagulant Anticardiolipin antibodies Elevated serum homocysteine Heparin-induced thrombocytopenia Other congenital or acquired thrombophilia Stroke (< 1 month) Elective arthroplasty Hip, pelvis, or leg fracture Acute spinal cord injury (< 1 month) Prophylaxis Regimen Total Risk Factor Score Risk Level Prophylaxis Regimen 0-1 Low Early ambulation 2 Moderate Order ONE of the following: *Sequential Compression Device (SCD) *Heparin 5000 units SQ BID 3-4 Higher Order ONE of the following medications: *Heparin 5000 units SQ TID *Enoxaparin/Lovenox 40 mg SQ daily (WT < 150 kg, CrCl > 30 mL/min) *Enoxaparin/Lovenox 30 mg SQ daily (WT < 150 kg, CrCl > 10-29 mL/min) *Enoxaparin/Lovenox 30 mg SQ BID (WT < 150 kg, CrCl > 30 mL/min) AND/OR *Sequential Compression Device (SCD) 5 or more Highest Order ONE of the following medications: *Heparin 5000 units SQ TID (Preferred with Epidurals) *Enoxaparin/Lovenox 40 mg SQ daily (WT < 150 kg, CrCl > 30 mL/min) *Enoxaparin/Lovenox 30 mg SQ daily (WT < 150 kg, CrCl > 10-29 mL/min) *Enoxaparin/Lovenox 30 mg SQ BID (WT < 150 kg, CrCl > 30 mL/min) AND *Sequential Compression Device (SCD) Assessment and Plan Problem List: (1) Sepsis ICD Code: A41.9 - Sepsis, unspecified organism (2) Cellulitis and abscess of buttock ICD Code: L02.31 - Cutaneous abscess of buttock; L03.317 - Cellulitis of buttock (3) Lower extremity cellulitis ICD Code: L03.119 - Cellulitis of unspecified part of limb (4) Hypokalemia ICD Code: E87.6 - Hypokalemia (5) IVDU (intravenous drug user) ICD Code: F19.90 - Other psychoactive substance use, unspecified, uncomplicated (6) Tobacco abuse ICD Code: Z72.0 - Tobacco use Assessment and Plan A/P: 1. Sepsis: Temp 102.0, HR 100, WBC 22, Source-Cellulitis Buttock/Foot. S/p Blood Cultures, Vanc/Azactam/Flagyl in ER, continue IV Abx, follow up cultures. 2. Left Buttock Cellulitis: extensive tense cellulitis left buttock, CT Pelvis w/ diffuse cellulitis left buttock and induration, images reviewed by me. Concern for early abscess formation. Consult Gen Sx for further evaluation. Continue w/ IV Abx as above. 3. Left Foot Cellulitis: involving left 3rd toe w/ streaking up leg, X-ray Toe w/ soft tissue swelling left third digit, images reviewed by me. Will consult Podiatry for further eval. Wound Consult 4. Hypokalemia: K+ 2.8, s/p replacement, will recheck and replace as needed. 5. IVDU: w/ Cocaine/Heroin, last use yesterday. Ativan prn for withdrawal 6. Tobacco Abuse: Counselled. NicoDerm/Ativan prn 7. DVT Prophylaxis: Lovenox sq 8. Social work for d/c planning as needed. 9. Case discussed w/ ER physician at length. Physician Certification 2 Midnight Certification Type: Admission for Inpatient Services Order for Inpatient Services The services are ordered in accordance with Medicare regulations or non- Medicare payer requirements, as applicable. In the case of services not specified as inpatient-only, they are appropriately provided as inpatient services in accordance with the 2-midnight benchmark. Estimated LOS (days): 2 days is the estimated time the patient will need to remain in the hospital, assuming treatment plan goals are met and no additional complications. Post-Hospital Plan: Not yet determined Ashley Moore MD May 04, 2017 19:40
[2017-05-04 19:41] VITALS: BP 109/58; PULSE 97; RESP 20; O2SAT 97
[2017-05-04] MEDS ORDERED: SODIUM CHLORIDE 0.9% FLUSH 10 ML FLUSH IV FLUSH PRN (19:45)
[2017-05-04] MEDS ORDERED: ONDANSETRON HCL 4 MG/2 ML VIAL IVP PRN (19:45)
[2017-05-04] MEDS ORDERED: MAGNESIUM HYDROXIDE SUSP 30 ML CUP PO PRN (19:45)
[2017-05-04] MEDS ORDERED: Vancomycin Consult Pharmacy 1 EA OTHER SCH (19:45)
[2017-05-04] MEDS ORDERED: LACTULOSE SYRUP 20 GM/30 ML CUP PO PRN (19:45)
[2017-05-04] MEDS ORDERED: BISACODYL 10 MG SUPP RECTAL PRN (19:45)
[2017-05-04] MEDS ORDERED: ACETAMINOPHEN 325 MG TAB PO PRN (19:45)
[2017-05-04] MEDS ORDERED: SENNOSIDES 8.6 MG TAB PO PRN (19:45)
--- NOTE | 2017-05-04 19:57 | RADRPT ---
EXAM DATE/TIME: 05/04/2017 19:31 [facility] COMPARISON: No previous studies available for comparison. INDICATIONS : Open wound to 3rd digit, left foot. Possible cellulitis. MEDICAL HISTORY : None. SURGICAL HISTORY : None. ENCOUNTER: Initial ACUITY: 1 day PAIN SCORE: 2/10 LOCATION: Left 3rd digit FINDINGS: Soft tissue swelling is noted involving the left third digit. There is no definite underlying fractu re or dislocation. No focal bony abnormality identified. CONCLUSION: 1. Soft tissue swelling involving the left third digit. 2. No acute fracture or dislocation. Leif Vallejo MD on May 04, 2017 at 19:49 Board Certified Radiologist. This report was verified electronically.
[2017-05-04 20:00] VITALS: BP 99/63; PULSE 96; RESP 20; TEMP 96.4; O2SAT 100
[2017-05-04 20:34] LABS: ALKALINE PHOSPHATASE 92 U/L (45-117); ALT (GPT) 22 U/L (10-53); ANION GAP 8 MEQ/L (5-15); AST (GOT) 19 U/L (15-37); BICARBONATE 25.4 MEQ/L (21.0-32.0); BLOOD UREA NITROGEN 5 MG/DL (7-18); CHLORIDE 98 MEQ/L (98-107); GLOMERULAR FILTRATION RATE 158 ML/MIN (>89); SODIUM (NA) 131 MEQ/L (136-145); TOTAL BILIRUBIN ADULT 0.9 MG/DL (0.2-1.0)
[2017-05-04 20:43] LABS: POTASSIUM 2.8 MEQ/L (3.5-5.1)
[2017-05-04] MEDS: SODIUM CHLOR 0.9% 1000 ML INJ 1,000 ML IV SCH (20:44)
[2017-05-04 21:00] VITALS: TEMP 98.5
[2017-05-04] MEDS: SODIUM CHLORIDE 0.9% FLUSH 10 ML FLUSH IV FLUSH SCH (21:00)
[2017-05-04] MEDS ORDERED: POTASSIUM CHLORIDE 25 MEQ EFFERVESCENT TAB PO ONE (21:15)
[2017-05-04] MEDS: DOCUSATE SODIUM 50 MG/SENNA 8.6 MG TAB PO SCH (21:51)
[2017-05-04 22:03] VITALS: PULSE 99
[2017-05-04] MEDS: AZTREONAM INJ 1,000 MG in SODIUM CHLORIDE 0.9% INJ 100 ML IV SCH (22:49)
[2017-05-04] MEDS: HYDROmorphone HCL PF 1 MG/ML VIAL IV PUSH PRN (23:25)
[2017-05-05] VITALS (7 sets, daily range): BP systolic 95–118; BP diastolic 54–68; PULSE 101–124; RESP 18–22; TEMP 97–100.1; O2SAT 94–100
[2017-05-05] MEDS: HYDROmorphone HCL PF 1 MG/ML VIAL IV PUSH PRN (03:29)
[2017-05-05] MEDS: metroNIDAZOLE 500 MG INJ 100 ML IV SCH ×3 (03:29→20:49)
[2017-05-05] MEDS: VANCOMYCIN 1,000 MG/NS 250 ML IV SCH ×6 (04:38→23:16)
[2017-05-05] MEDS: AZTREONAM INJ 1,000 MG in SODIUM CHLORIDE 0.9% INJ 100 ML IV SCH ×3 (05:50→20:52)
[2017-05-05] MEDS: SODIUM CHLOR 0.9% 1000 ML INJ 1,000 ML IV SCH (05:51)
[2017-05-05 06:53] LABS: AUTOMATED NEUTROPHIL # 18.2 TH/MM3 (1.8-7.7); BASOPHIL % 0.2 % (0.0-2.0); EOSINOPHIL # 0.2 TH/MM3 (0-0.4); EOSINOPHIL % 0.8 % (0.0-4.0); HEMATOCRIT 29.4 % (35.0-46.0); LYMPH % 6.6 % (9.0-44.0); LYMPHOCYTE # 1.4 TH/MM3 (1.0-4.8); MEAN CELL VOLUME 85.3 FL (80.0-100.0); MEAN CORPUSCULAR HEMOGLOBIN 28.8 PG (27.0-34.0); MEAN CORPUSCULAR HGB CONC 33.8 % (32.0-36.0); MONO % 5.9 % (0.0-8.0); NEUT % 86.5 % (16.0-70.0); PLATELET COUNT 296 TH/MM3 (150-450); RED BLOOD COUNT 3.45 MIL/MM3 (4.00-5.30); RED CELL DISTRIBUTION WIDTH 13.5 % (11.6-17.2); WHITE BLOOD COUNT 21.1 TH/MM3 (4.0-11.0)
[2017-05-05 07:05] LABS: HEMO FLAGS AUTO DIFF
[2017-05-05 07:44] LABS: BICARBONATE 24.8 MEQ/L (21.0-32.0); CALCIUM-PROTEIN CORRECTED 7.9 MG/DL (8.5-10.1); TOTAL BILIRUBIN ADULT 0.7 MG/DL (0.2-1.0)
[2017-05-05 07:48] LABS: POTASSIUM 2.7 MEQ/L (3.5-5.1)
[2017-05-05] MEDS: MORPHINE SULFATE 4 MG/ML INJ IV PUSH PRN ×3 (09:32→20:47)
[2017-05-05] MEDS: NS + KCL 20 MEQ INJ 1,000 ML IV SCH ×2 (09:33→18:15)
[2017-05-05] MEDS: ENOXAPARIN SODIUM 40 MG/0.4 ML SYRINGE SQ SCH (09:34)
[2017-05-05] MEDS: FAMOTIDINE 20 MG TAB PO SCH ×2 (09:35→20:46)
[2017-05-05] MEDS: DOCUSATE SODIUM 50 MG/SENNA 8.6 MG TAB PO SCH ×2 (09:35→21:00)
[2017-05-05] MEDS: SODIUM CHLORIDE 0.9% FLUSH 10 ML FLUSH IV FLUSH SCH ×2 (09:36→21:00)
[2017-05-05] MEDS: BACITRACIN OINT 0.9 GM PKT TOPICAL SCH (10:01)
--- NOTE | 2017-05-05 10:05 | MB ---
cc: VIOLETTE POWELL DATE OF CONSULTATION: 05/05/17 CHIEF COMPLAINT Left third digit ulceration. HISTORY OF PRESENT ILLNESS Ms. Chong is a 32-year-old female with an extensive history of IV drug abuse who presented to the ER with severe pain and redness to her left buttocks as well as sites of cellulitis to the left foot and hand. The patient reports subjective fever and chills. The main complaint at this time is pain. She states that her current pain regimen is not helping to control her pain, but she does use cocaine as well as injecting Dilaudid for several years. PAST MEDICAL HISTORY None. PAST SURGICAL HISTORY Hernia repair. ALLERGIES Penicillin. FAMILY HISTORY Noncontributory. SOCIAL HISTORY The patient smokes one-pack of cigarettes a day and admits to illicit drug abuse. VITAL SIGNS Temperature 97.0 with a T-max of 102, pulse rate is 111, respiratory rate 20, blood pressure 107/68, pulse ox 99% O2. LABORATORY DATA White count is 21.1 down from 22.4, hemoglobin 9.9, hematocrit 29.4, platelets 296. Sodium 131, potassium 2.8, chloride 98, carbon dioxide 25.4, BUN 5, creatinine 0.46. Blood cultures are pending. IMAGING X-rays of the foot were negative for any gas in the soft tissues or signs of cortical erosion. PHYSICAL EXAMINATION On physical exam, the patient has palpable DP and PT pulses with cap fill time of less than 3 seconds. Gross sensation is intact. No severe biomechanical deformities. The left third digit plantarly has an ulcer 0.5 cm. x 0.5 x 0 with a fibrotic wound bed sensitive to touch. No signs of foreign body. There is erythema involving the entire toe but not extending beyond the MPJ. There is also mild to moderate swelling of the entire toe not extending beyond the MPJ. On the lateral aspect of the third toe, there is a partial thickness ulceration measuring 0.7 cm x 0.7 cm x 0 with some serosanguineous drainage. ASSESSMENT AND PLAN 1. Stage II ulcerations x2 to the left third digit with cellulitis. - The patient is being more than adequately covered with broad-spectrum antibiotics. - Wound care orders placed. - The patient was changed to IV morphine for breakthrough pain. Original order was for Dilaudid. The patient did not feel that this was working well and does appear to be in legitimate pain. I did also educate her that while the infection remains so severe the narcotics are unlikely to be able to remove her pain and that her goal should be to be able to achieve some level of comfort. - The patient is also requesting a sleep aid for tonight. - The patient can weight bear as tolerated so long as the wounds are covered. We will check pain on the patient intermittently while in-house but not in need of surgery at this time. Thank you for the consultation. Violette THOMAS/BJF /7:51 AM /9:41 AM MTDD
--- NOTE | 2017-05-05 10:09 | PD.CONS ---
HPI Service General Surgery Consult Requested By Reason for Consult left buttock cellulitis Primary Care Physician Rula Francisco MD History of Present Illness 32 yo F with h/o IVDA presents with c/o swelling and pain of left buttock as well as one of her left toes. She had fever and chills. She was noted to have leukocytosis. CT pelvis showed inflammation of the left buttock left perianal and perineal labial regions without fluid collection. Review of Systems Constitutional: COMPLAINS OF: Fever, Chills Eyes: DENIES: Eye inflammation, Eye pain Respiratory: DENIES: Cough, Wheezing Cardiovascular: DENIES: Chest pain, Palpitations Gastrointestinal: DENIES: Abdominal pain, Nausea, Vomiting Integumentary: DENIES: Pruritus, Rash Neurologic: DENIES: Paresthesias, Seizures Past Family Social History Past Medical History IVDA cocaine and heroin Past Surgical History Ventral hernia repair Reported Medications Reported Meds & Active Scripts Active No Active Prescriptions or Reported Medications Allergies: Coded Allergies: penicillin G (Unverified Allergy, Intermediate, 05/04/17) Active Ordered Medications Current Medications Medications (Trade) Dose Ordered Sig/Jenifer Route Start Time Stop Time Status Last Admin Pharmacy Profile Note 0 ml @ 0 mls/hr UNSCH OTHER 05/04/17 19:45 Aztreonam 1000 mg/ Sodium Chloride 100 ml @ 200 mls/hr Q8H IV 05/04/17 21:00 05/05/17 05:50 Metronidazole 100 ml @ 100 mls/hr Q8H IV 05/05/17 04:00 05/05/17 03:29 (Ativan Inj) 1 mg Q2H PRN IV PUSH 05/04/17 19:45 (NS Flush) 2 ml UNSCH PRN IV FLUSH 05/04/17 19:45 (NS Flush) 2 ml BID IV FLUSH 05/04/17 21:00 05/05/17 09:36 (Zofran Inj) 4 mg Q6H PRN IVP 05/04/17 19:45 (Lovenox Inj) 40 mg Q24H SQ 05/05/17 09:00 05/05/17 09:34 (Tylenol) 650 mg Q6H PRN PO 05/04/17 19:45 (Roxicodone) 10 mg Q4H PRN PO 05/04/17 19:45 05/05/17 05:50 (Roxicodone) 5 mg Q4H PRN PO 05/04/17 19:45 (Lyubov-Colace) 1 tab BID PO 05/04/17 21:00 05/05/17 09:35 (Milk Of Magnesia Liq) 30 ml Q12H PRN PO 05/04/17 19:45 (Senokot) 17.2 mg Q12H PRN PO 05/04/17 19:45 (Dulcolax Supp) 10 mg DAILY PRN RECTAL 05/04/17 19:45 (Lactulose Liq) 30 ml DAILY PRN PO 05/04/17 19:45 (Pepcid) 20 mg BID PO 05/05/17 09:00 05/05/17 09:35 Vancomycin HCl 1000 mg/Sodium Chloride 250 ml @ 250 mls/hr Q8H IV 05/05/17 05:00 05/05/17 04:38 Miscellaneous Information SPECIFIC LAB TO BE [facility]... ONCE ONCE .XX 05/05/17 20:45 05/05/17 20:46 (Morphine Inj) 2 mg Q4HR PRN IV PUSH 05/05/17 08:00 05/05/17 09:32 (Bacitracin Oint Packet) 0.9 gm DAILY TOPICAL 05/05/17 09:00 Potassium Chloride 100 ml @ 100 mls/hr Q1H IV 05/05/17 08:30 05/05/17 11:29 Potassium Chloride/Sodium Chloride 1,000 ml @ 100 mls/hr Q10H IV 05/05/17 08:15 05/05/17 09:33 Family History Noncontributory Social History She uses IV drugs. Physical Exam Vital Signs Vital Signs Date Time Temp Pulse Resp B/P (MAP) Pulse Ox O2 Delivery O2 Flow Rate FiO2 05/05/17 08:00 100.1 106 20 95/54 (68) 100 05/05/17 04:00 97.0 111 20 107/68 (81) 99 05/05/17 03:59 18 05/05/17 02:49 18 05/05/17 00:00 99.6 110 20 109/67 (81) 99 05/04/17 22:03 99 05/04/17 21:19 05/04/17 21:00 98.5 05/04/17 20:00 96.4 96 20 99/63 (75) 100 05/04/17 19:41 97 20 109/58 (75) 97 Room Air 05/04/17 18:23 100 20 102/61 (75) 100 05/04/17 18:23 99 Room Air 05/04/17 18:23 100 20 102/61 (75) 100 Room Air 05/04/17 15:42 20 05/04/17 14:40 102.0 76 14 134/84 (101) 99 Physical Exam Examined in the presence of a female nurse. GENERAL: Awake and alert. Mild distress. HEAD: Normocephalic. Atraumatic. EYES: Pupils equal round and reactive to light bilaterally. No scleral icterus. CHEST: Nonlabored breathing. CARDIOVASCULAR: Regular rate and rhythm. EXTREMITIES: Left buttock edematous and very tender with induration and erythema. No purulent drainage. No fluctuance. There is inflammation in the perineum and the left inferior labia. Rectal exam was performed and there did not appear to be palpable mass or fluctuance in the lateral anal canal or lower rectum. SKIN: As above Laboratory Laboratory Tests Test 05/04/17 16:25 05/04/17 19:48 05/05/17 05:44 White Blood Count 22.4 21.1 Red Blood Count 4.35 3.45 Hemoglobin 12.5 9.9 Hematocrit 37.3 29.4 Mean Corpuscular Volume 85.9 85.3 Mean Corpuscular Hemoglobin 28.8 28.8 Mean Corpuscular Hemoglobin Concent 33.5 33.8 Red Cell Distribution Width 13.3 13.5 Platelet Count 340 296 Mean Platelet Volume 10.1 10.4 Neutrophils (%) (Auto) 88.7 86.5 Lymphocytes (%) (Auto) 5.6 6.6 Monocytes (%) (Auto) 5.3 5.9 Eosinophils (%) (Auto) 0.3 0.8 Basophils (%) (Auto) 0.1 0.2 Neutrophils # (Auto) 19.9 18.2 Lymphocytes # (Auto) 1.3 1.4 Monocytes # (Auto) 1.2 1.2 Eosinophils # (Auto) 0.1 0.2 Basophils # (Auto) 0.0 0.0 CBC Comment DIFF FINAL AUTO DIFF Differential Comment Blood Urea Nitrogen 5 5 4 Creatinine 0.64 0.46 0.50 Random Glucose 102 94 98 Total Protein 8.1 6.6 5.9 Albumin 3.0 2.3 2.0 Calcium Level 9.2 7.9 7.3 Alkaline Phosphatase 107 92 109 Aspartate Amino Transf (AST/SGOT) 22 19 18 Alanine Aminotransferase (ALT/SGPT) 29 22 21 Total Bilirubin 1.0 0.9 0.7 Sodium Level 124 131 135 Potassium Level 2.3 2.8 2.7 Chloride Level 88 98 101 Carbon Dioxide Level 30.2 25.4 24.8 Anion Gap 6 8 9 Estimat Glomerular Filtration Rate 108 158 144 Lactic Acid Level 1.3 Protein Corrected Calcium 7.9 Magnesium Level 1.6 Date/Time Source Procedure Growth Status 05/04/17 16:30 Blood Peripheral Aerobic Blood Culture Pending Received 05/04/17 16:30 Blood Peripheral Anaerobic Blood Culture Pending Received Result Diagram: 05/05/17 0544 05/05/17 0544 Imaging Last Impressions Toe X-Ray 05/04/17 1904 Signed Impressions: Service Date/Time: Thursday, May 04, 2017 19:31 - CONCLUSION: 1. Soft tissue swelling involving the left third digit. 2. No acute fracture or dislocation. Leif Vallejo MD Chest X-Ray 05/04/17 1509 Signed Impressions: Service Date/Time: Thursday, May 04, 2017 15:33 - CONCLUSION: 1. Rotatory scoliosis. The lungs are clear. John Stephens MD Pelvis CT 05/04/17 0000 Signed Impressions: Service Date/Time: Thursday, May 04, 2017 17:50 - CONCLUSION: 1. Diffuse cellulitis of the left buttock as well as induration and swelling of the left perineum in the region of the perianal/perilabia tissues. Gynecologic evaluation would be helpful for further evaluation. No definite drainable abscess is confirmed. Leif Vallejo MD Assessment and Plan Assessment and Plan 32 yo F recent IVDU with severe cellulitis left buttock and perianal area. ? beginning of perirectal abscess. Does not appear on CT from last night that there is anything to drain surgically. 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 Will f/u tomorrow and consider repeating CT a/p. Ok for diet today from my standpoint. Magnus,Grayson BENITEZ May 05, 2017 10:09
[2017-05-05 10:30] LABS: BANDS 17 % (0-6); POLYS (SEG NEUTROPHILS) 73 % (16-70); WBC DIFF SAMPLE 100
[2017-05-05] MEDS: POTASSIUM CHLOR 10 MEQ PREMIX 100 ML IV SCH ×3 (10:30→13:01)
[2017-05-05 10:31] LABS: PLATELET ESTIMATE SMEAR NORMAL (NORMAL); PLATELET MORPHOLOGY NORMAL (NORMAL); SCAN/DIFF FINAL DIFF MANUAL
[2017-05-05] MEDS ORDERED: LEVOFLOXACIN 500 MG PREMIX INJ 100 ML IV SCH (14:00)
--- NOTE | 2017-05-05 14:15 | HHI.PR ---
Subjective Remarks patient complains of gluteal pain- left and foot pain uncooperative Objective Vitals Vital Signs Date Time Temp Pulse Resp B/P (MAP) Pulse Ox O2 Delivery O2 Flow Rate FiO2 05/05/17 12:00 97.7 104 18 95/56 (69) 100 05/05/17 11:02 18 05/05/17 09:37 18 05/05/17 08:00 100.1 106 20 95/54 (68) 100 05/05/17 04:00 97.0 111 20 107/68 (81) 99 05/05/17 03:59 18 05/05/17 00:00 99.6 110 20 109/67 (81) 99 05/04/17 22:03 99 05/04/17 21:19 05/04/17 21:00 98.5 05/04/17 20:00 96.4 96 20 99/63 (75) 100 05/04/17 19:41 97 20 109/58 (75) 97 Room Air 05/04/17 18:23 100 20 102/61 (75) 100 05/04/17 18:23 99 Room Air 05/04/17 18:23 100 20 102/61 (75) 100 Room Air 05/04/17 15:42 20 05/04/17 14:40 102.0 76 14 134/84 (101) 99 I/O 05/04/17 05/04/17 05/04/17 05/05/17 05/05/17 05/05/17 07:00 15:00 23:00 07:00 15:00 23:00 Intake Total 2590 ml 440 ml Balance 2590 ml 440 ml Intake Oral 240 ml 240 ml IV Total 2350 ml 200 ml # Voids 0 2 Result Diagram: 05/05/17 0544 05/05/17 0544 Imaging Last Impressions Toe X-Ray 05/04/17 1904 Signed Impressions: Service Date/Time: Thursday, May 04, 2017 19:31 - CONCLUSION: 1. Soft tissue swelling involving the left third digit. 2. No acute fracture or dislocation. Leif Vallejo MD Chest X-Ray 05/04/17 1509 Signed Impressions: Service Date/Time: Thursday, May 04, 2017 15:33 - CONCLUSION: 1. Rotatory scoliosis. The lungs are clear. John Stephens MD Pelvis CT 05/04/17 0000 Signed Impressions: Service Date/Time: Thursday, May 04, 2017 17:50 - CONCLUSION: 1. Diffuse cellulitis of the left buttock as well as induration and swelling of the left perineum in the region of the perianal/perilabia tissues. Gynecologic evaluation would be helpful for further evaluation. No definite drainable abscess is confirmed. Leif Vallejo MD Objective Remarks skin- with multiple driend wounds, upper back and forearms and legs awake and alert, oriented x 3 anicteric lungs clear regular rhythm abdomen soft left glutea area- with marked erythema and induration left foot- 3rd toe with erytthema, ++ DP, PT A/P Problem List: (1) Sepsis ICD Code: A41.9 - Sepsis, unspecified organism (2) Cellulitis and abscess of buttock ICD Code: L02.31 - Cutaneous abscess of buttock; L03.317 - Cellulitis of buttock (3) Lower extremity cellulitis ICD Code: L03.119 - Cellulitis of unspecified part of limb (4) Hypokalemia ICD Code: E87.6 - Hypokalemia (5) IVDU (intravenous drug user) ICD Code: F19.90 - Other psychoactive substance use, unspecified, uncomplicated (6) Tobacco abuse ICD Code: Z72.0 - Tobacco use Assessment and Plan 32 years old IVDU Sepsis multiple sources- ] left gluteal cellulitis: r/o concommitant - labial infection Left foot/3rd toe cellultis Multiple skin lesions/scab wounds- dry- back and forearms/legs ff cultures Contiue on Vanco/Flagyl and Azactam d/w GS- consider CRS on Sunday r/o perirectal involvement Podiatry ff will get ID service involve early Hypokalemia:- will replace IV and po. Check Mg level- replace if low IVDU: w/ Cocaine/Heroin, last use 05/03 Ativan prn for withdrawal. counselled Tobacco Abuse: Counselled. NicoDerm/Ativan prn DVT prophylaxis Jeff Shields MD May 05, 2017 14:15
[2017-05-05] MEDS: POTASSIUM CHLORIDE 20 MEQ CONTROLLED RELEASE TAB PO SCH (14:51)
[2017-05-05] MEDS: MAGNESIUM SULFATE 1 GM PREMIX 100 ML IV SCH ×2 (15:50→16:50)
--- NOTE | 2017-05-05 15:51 | EKG ---
Date Performed: 05/04/2017 Time Performed: 18:37:01 PTAGE: 32 years EKG: Sinus rhythm NONSPECIFIC ST & T-WAVE ABNORMALITY BORDERLINE ECG NO PREVIOUS TRACING DOCTOR: Mohit Blackburn Interpretating Date/Time 05/05/2017 15:49:37
[2017-05-05] MEDS ORDERED: PHARMACY ORDERED LAB ONE (20:45)
[2017-05-06] VITALS (7 sets, daily range): BP systolic 96–125; BP diastolic 57–79; PULSE 87–105; RESP 17–20; TEMP 96.3–97.9; O2SAT 93–100
[2017-05-06] MEDS: MORPHINE SULFATE 4 MG/ML INJ IV PUSH PRN ×2 (01:14→05:14)
[2017-05-06] MEDS: metroNIDAZOLE 500 MG INJ 100 ML IV SCH ×2 (03:51→12:50)
[2017-05-06] MEDS: NS + KCL 20 MEQ INJ 1,000 ML IV SCH ×3 (03:53→17:56)
[2017-05-06] MEDS: AZTREONAM INJ 1,000 MG in SODIUM CHLORIDE 0.9% INJ 100 ML IV SCH ×3 (05:10→20:56)
[2017-05-06] MEDS: VANCOMYCIN 1,000 MG/NS 250 ML IV SCH ×4 (05:10→14:05)
[2017-05-06 07:06] LABS: AUTOMATED NEUTROPHIL # 14.6 TH/MM3 (1.8-7.7); BASOPHIL % 0.2 % (0.0-2.0); EOSINOPHIL # 0.4 TH/MM3 (0-0.4); EOSINOPHIL % 2.5 % (0.0-4.0); HEMATOCRIT 27.9 % (35.0-46.0); HEMO FLAGS DIFF FINAL; LYMPH % 8.5 % (9.0-44.0); LYMPHOCYTE # 1.5 TH/MM3 (1.0-4.8); MEAN CELL VOLUME 86.1 FL (80.0-100.0); MEAN CORPUSCULAR HEMOGLOBIN 29.4 PG (27.0-34.0); MEAN CORPUSCULAR HGB CONC 34.1 % (32.0-36.0); MONO % 5.9 % (0.0-8.0); NEUT % 82.9 % (16.0-70.0); PLATELET COUNT 304 TH/MM3 (150-450); RED BLOOD COUNT 3.23 MIL/MM3 (4.00-5.30); RED CELL DISTRIBUTION WIDTH 13.5 % (11.6-17.2); WHITE BLOOD COUNT 17.6 TH/MM3 (4.0-11.0)
[2017-05-06 07:11] LABS: BICARBONATE 26.5 MEQ/L (21.0-32.0)
[2017-05-06] MEDS: DOCUSATE SODIUM 50 MG/SENNA 8.6 MG TAB PO SCH ×2 (08:47→20:56)
[2017-05-06] MEDS: ENOXAPARIN SODIUM 40 MG/0.4 ML SYRINGE SQ SCH ×2 (08:47→08:49)
[2017-05-06] MEDS: FAMOTIDINE 20 MG TAB PO SCH ×2 (08:47→20:55)
[2017-05-06] MEDS: BACITRACIN OINT 0.9 GM PKT TOPICAL SCH (08:47)
[2017-05-06] MEDS: POTASSIUM CHLORIDE 20 MEQ CONTROLLED RELEASE TAB PO SCH ×2 (08:47→20:55)
[2017-05-06] MEDS: SODIUM CHLORIDE 0.9% FLUSH 10 ML FLUSH IV FLUSH SCH ×2 (08:49→20:56)
--- NOTE | 2017-05-06 10:18 | HHI.PR ---
Subjective Subjective Notes Patient has significant pain; small amount of serous drainage started last night. She states her pain is not controlled by current regimen. Objective Vitals/I&O Vital Signs Date Time Temp Pulse Resp B/P (MAP) Pulse Ox O2 Delivery O2 Flow Rate FiO2 05/06/17 08:00 96.6 102 20 108/68 (81) 99 05/04/17 19:41 Room Air Labs Laboratory Tests Test 05/05/17 16:25 05/05/17 21:34 05/06/17 05:50 Urine Opiates Screen POS Urine Barbiturates Screen NEG Urine Amphetamines Screen POS Urine Benzodiazepines Screen NEG Urine Cocaine Screen POS Urine Cannabinoids Screen NEG Vancomycin Level Trough 8.6 White Blood Count 17.6 Red Blood Count 3.23 Hemoglobin 9.5 Hematocrit 27.9 Mean Corpuscular Volume 86.1 Mean Corpuscular Hemoglobin 29.4 Mean Corpuscular Hemoglobin Concent 34.1 Red Cell Distribution Width 13.5 Platelet Count 304 Mean Platelet Volume 10.3 Neutrophils (%) (Auto) 82.9 Lymphocytes (%) (Auto) 8.5 Monocytes (%) (Auto) 5.9 Eosinophils (%) (Auto) 2.5 Basophils (%) (Auto) 0.2 Neutrophils # (Auto) 14.6 Lymphocytes # (Auto) 1.5 Monocytes # (Auto) 1.0 Eosinophils # (Auto) 0.4 Basophils # (Auto) 0.0 CBC Comment DIFF FINAL Differential Comment Blood Urea Nitrogen 3 Creatinine 0.41 Random Glucose 96 Calcium Level 7.6 Sodium Level 137 Potassium Level 3.0 Chloride Level 105 Carbon Dioxide Level 26.5 Anion Gap 6 Estimat Glomerular Filtration Rate 181 Date/Time Source Procedure Growth Status 05/04/17 16:30 Blood Peripheral Aerobic Blood Culture - Preliminary NO GROWTH IN 1 DAY Resulted 05/04/17 16:30 Blood Peripheral Anaerobic Blood Culture - Preliminary NO GROWTH IN 1 DAY Resulted Cardiovascular: Regular Lungs: Clear Abdomen: Non-distended, Non-tender, BS normal Narrative Exam Erythema is centralizing; there is small amount of serous drainage from what appears to be a blister medially. No purulence noted. A/P Assessment and Plan Impression: Severe cellulitis L buttock; likely forming an abscess. Plan: K-thermia pad I have changed her analgesics to Oxycodone 10mg 2 tabs q 4 hours scheduled; also have increased Dilaudid to 4 mg q 2h prn breakthrough pain and added Toradol q 6h. She has used IV drugs in the past and is extremely tolerant...in that situation, she requires more in the way of analgesics. If anyone wants to change it back, please call me first. An u/s is ordered for the AM. Hayder Montenegro MD May 06, 2017 10:18
[2017-05-06] MEDS: HYDROmorphone HCL PF 4 MG/ML VIAL IV PUSH PRN ×4 (10:43→22:21)
--- NOTE | 2017-05-06 11:35 | HHI.PR ---
Subjective Remarks patient up and ambulating left upper inner aspect of thigh - just now started draining abundant - purulent brownish thick drainage Objective Vitals Vital Signs Date Time Temp Pulse Resp B/P (MAP) Pulse Ox O2 Delivery O2 Flow Rate FiO2 05/06/17 08:00 96.6 102 20 108/68 (81) 99 05/06/17 04:00 96.3 87 20 101/61 (74) 97 05/06/17 00:00 97.9 105 20 96/57 (70) 93 05/05/17 20:25 118 05/05/17 20:00 98.2 124 22 118/61 (80) 100 05/05/17 16:00 97.4 101 20 97/60 (72) 94 05/05/17 15:55 18 05/05/17 14:10 18 05/05/17 12:00 97.7 104 18 95/56 (69) 100 I/O 05/05/17 05/05/17 05/05/17 05/06/17 05/06/17 05/06/17 06:59 14:59 22:59 06:59 14:59 22:59 Intake Total 690 ml 2040 ml 1930 ml Output Total 300 ml Balance 690 ml 1740 ml 1930 ml Intake Oral 240 ml 1840 ml 240 ml IV Total 450 ml 200 ml 1690 ml Output Urine Total 300 ml # Voids 2 9 3 # Bowel Movements 2 Result Diagram: 05/06/17 0550 05/06/17 0550 Imaging Last Impressions Toe X-Ray 05/04/17 1904 Signed Impressions: Service Date/Time: Thursday, May 04, 2017 19:31 - CONCLUSION: 1. Soft tissue swelling involving the left third digit. 2. No acute fracture or dislocation. Leif Vallejo MD Chest X-Ray 05/04/17 1509 Signed Impressions: Service Date/Time: Thursday, May 04, 2017 15:33 - CONCLUSION: 1. Rotatory scoliosis. The lungs are clear. John Stephens MD Pelvis CT 05/04/17 0000 Signed Impressions: Service Date/Time: Thursday, May 04, 2017 17:50 - CONCLUSION: 1. Diffuse cellulitis of the left buttock as well as induration and swelling of the left perineum in the region of the perianal/perilabia tissues. Gynecologic evaluation would be helpful for further evaluation. No definite drainable abscess is confirmed. Leif Vallejo MD Objective Remarks skin- with multiple driend wounds, upper back and forearms and legs awake and alert, oriented x 3 anicteric lungs clear regular rhythm abdomen soft left glutea area- with marked erythema and induration left inner aspect of thigh- now draining purulent fluid left 3rd toe with swelling and erythema no labial swelling left foot- 3rd toe with erythema and swelling , ++ DP, PT A/P Problem List: (1) Sepsis ICD Code: A41.9 - Sepsis, unspecified organism (2) Cellulitis and abscess of buttock ICD Code: L02.31 - Cutaneous abscess of buttock; L03.317 - Cellulitis of buttock (3) Lower extremity cellulitis ICD Code: L03.119 - Cellulitis of unspecified part of limb (4) Hypokalemia ICD Code: E87.6 - Hypokalemia (5) IVDU (intravenous drug user) ICD Code: F19.90 - Other psychoactive substance use, unspecified, uncomplicated (6) Tobacco abuse ICD Code: Z72.0 - Tobacco use Assessment and Plan 32 years old IVDU Sepsis multiple sources- ] left gluteal cellulitis/left inner thigh abscess- now spontaneously draining Left foot/3rd toe cellulitis Multiple skin lesions/scab wounds- dry- back and forearms/legs specimen sent for gram stain and c and s Continue on Vanco/Flagyl and Azactam d/w [facility]- Dr. Agudelo - consider CRS on Sunday r/o perirectal involvement Podiatry ff ID consulted d/w Dr. Montenegro- he wrote for change in pain regimen and will address pain meds Persistent Hypokalemia:- will replace IV and po. Increase po KCL to bid IVDU: w/ Cocaine/Heroin, last use 05/03 Ativan prn for withdrawal. counselled Tobacco Abuse: Counselled. NicoDerm/Ativan prn DVT prophylaxis Jeff Shields MD May 06, 2017 11:35
[2017-05-06] MEDS ORDERED: POTASSIUM CHLOR 10 MEQ PREMIX 100 ML IV SCH (12:00)
[2017-05-06] MEDS: KETOROLAC TROMETHAMINE 30 MG/ML (IVP) VIAL IV PUSH SCH ×2 (12:50→17:56)
--- NOTE | 2017-05-06 13:17 | PD.CONS ---
History of Present Illness Service Infectious disease Consult Requested By Dr Chris Shields Reason for Consult Evaluate patient with sepsis, left gluteal cellulitis, abscess Primary Care Physician Rula Francisco MD Diagnoses: History of Present Illness Patient seen and examined. Records reviewed. Patient is a 32-year-old female with known active IV drug use, presented to the hospital complaining of pain, redness, and swelling, in her left buttocks. She was also complaining of some redness on her left hand and left third toe. Patient also complains of multiple lesions in her skin that she picks on. There has been fever and chills. Her WBC was initially 22,000. Patient was started on broad-spectrum antibiotics, and today she started having drainage in the left buttock area. Patient still complaining of significant pain especially in the left buttock region. She denies any respiratory, GI or any urinary complaints. Her blood cultures are negative so far. Her WBC is still elevated but a little bit better compared to admission. CT of the pelvis just showed diffuse cellulitis with no evidence of fluid collection. Infectious disease consultation has been requested to evaluate the patient. Review of Systems Constitutional: COMPLAINS OF: Fever, Chills Eyes: DENIES: Eye pain Ears, nose, mouth, throat: DENIES: Nasal discharge, Oral lesions, Throat pain, Ear Pain Respiratory: DENIES: Cough, Shortness of breath Cardiovascular: DENIES: Chest pain, Palpitations, Lower Extremity Edema Gastrointestinal: DENIES: Abdominal pain, Diarrhea, Nausea, Vomiting, Difficulty Swallowing Genitourinary: DENIES: Dysuria Musculoskeletal: COMPLAINS OF: Joint pain Integumentary: COMPLAINS OF: Rash Neurologic: DENIES: Headache Psychiatric: DENIES: Hallucinations Past Family Social History Allergies: Coded Allergies: penicillin G (Unverified Allergy, Intermediate, 05/04/17) hydromorphone (Verified Allergy, Unknown, hallucinations, 05/08/17) per pt's mother-pt has severe hallucinations when she takes dilaudid Past Medical History One and NVD Hep C IVDU Past Surgical History UH repair Reported Medications Reported Meds & Active Scripts Active No Active Prescriptions or Reported Medications Active Ordered Medications Tylenol Azactam Dulcolax Lovenox Pepcis Dilaudid Toradol Lactulose Ativan MOM Flagyl Zofran Oxycodone Potassium Senokot Vancomycin Family History Unremarkable Social History Negative for alcohol. Smokes 1ppd. +IVDU Cocaine/Heroin. Physical Exam Vital Signs Vital Signs Date Time Temp Pulse Resp B/P (MAP) Pulse Ox O2 Delivery O2 Flow Rate FiO2 05/06/17 11:13 18 05/06/17 08:00 96.6 102 20 108/68 (81) 99 05/06/17 04:00 96.3 87 20 101/61 (74) 97 05/06/17 00:00 97.9 105 20 96/57 (70) 93 05/05/17 20:25 118 05/05/17 20:00 98.2 124 22 118/61 (80) 100 05/05/17 16:00 97.4 101 20 97/60 (72) 94 05/05/17 15:55 18 05/05/17 14:10 18 Physical Exam GENERAL: Patient is a well-nourished, well-developed female, awake and alert , not in respiratory distress. Very emotional SKIN: Warm and dry. Has scattered small eschar about pea-sized, with no evidence of infection, in BUE, face, upper back and BLE. No ecchymoses and no evidence of embolic lesions. HEAD: Atraumatic. Normocephalic. No temporal wasting, or tenderness. EYES: [place] conjunctiva. No petechia or hemorrhage. Pupils equal, round and reactive to light. Extraocular movements full and intact. No scleral icterus. No injection or drainage. EARS, NOSE AND THROAT: Nose without bleeding or purulent nasal discharge. No sinus tenderness. Mucous membranes pink and moist. No oral lesions noted. No exudate. No oral thrush. NECK: Trachea midline. Supple and not tender, no meningeal signs CARDIOVASCULAR: Regular rate and rhythm. No murmurs, rubs or gallops heard RESPIRATORY: Clear to auscultation. Breath sounds equal bilaterally. No rales , wheezing or rhonchi ABDOMEN: Soft, non-tender, nondistended. Bowel sounds present and normoactive. No guarding. No rebound. No organomegaly. EXTREMITIES: No clubbing, cyanosi. There is a small ulcer on plantar 3rd toe , with mild swelling and erythema. No calf tenderness. Well perfused and warm. BACK: L buttock very red, with edema and induration and towards perineum, she has an area with cluster of multiple draining small opening with copious serosanguineous cloudy fluid, no odor. NEUROLOGICAL: Awake and alert. Cranial nerves grossly intact. Motor grossly within normal limits. PSYCHIATRIC: Very emotional, cooperative LINE: No evidence of infection Laboratory Laboratory Tests Test 05/05/17 16:25 05/05/17 21:34 05/06/17 05:50 Urine Opiates Screen POS Urine Barbiturates Screen NEG Urine Amphetamines Screen POS Urine Benzodiazepines Screen NEG Urine Cocaine Screen POS Urine Cannabinoids Screen NEG Vancomycin Level Trough 8.6 White Blood Count 17.6 Red Blood Count 3.23 Hemoglobin 9.5 Hematocrit 27.9 Mean Corpuscular Volume 86.1 Mean Corpuscular Hemoglobin 29.4 Mean Corpuscular Hemoglobin Concent 34.1 Red Cell Distribution Width 13.5 Platelet Count 304 Mean Platelet Volume 10.3 Neutrophils (%) (Auto) 82.9 Lymphocytes (%) (Auto) 8.5 Monocytes (%) (Auto) 5.9 Eosinophils (%) (Auto) 2.5 Basophils (%) (Auto) 0.2 Neutrophils # (Auto) 14.6 Lymphocytes # (Auto) 1.5 Monocytes # (Auto) 1.0 Eosinophils # (Auto) 0.4 Basophils # (Auto) 0.0 CBC Comment DIFF FINAL Differential Comment Blood Urea Nitrogen 3 Creatinine 0.41 Random Glucose 96 Calcium Level 7.6 Sodium Level 137 Potassium Level 3.0 Chloride Level 105 Carbon Dioxide Level 26.5 Anion Gap 6 Estimat Glomerular Filtration Rate 181 Date/Time Source Procedure Growth Status 05/04/17 16:30 Blood Peripheral Aerobic Blood Culture - Preliminary NO GROWTH IN 2 DAYS Resulted 05/04/17 16:30 Blood Peripheral Anaerobic Blood Culture - Preliminary NO GROWTH IN 2 DAYS Resulted 05/06/17 11:24 Wound Buttock Gram Stain Pending Received 05/06/17 11:24 Wound Buttock Wound Culture Pending Received Result Diagram: 05/06/17 0550 05/06/17 0550 Imaging RADIOLOGY STUDIES/FILMS REVIEWED Toe X-Ray 05/04/17 1904 Signed Impressions: Service Date/Time: Thursday, May 04, 2017 19:31 - CONCLUSION: 1. Soft tissue swelling involving the left third digit. 2. No acute fracture or dislocation. Leif Vallejo MD Chest X-Ray 05/04/17 2973 Signed Impressions: Service Date/Time: Thursday, May 04, 2017 15:33 - CONCLUSION: 1. Rotatory scoliosis. The lungs are clear. John Stephens MD Pelvis CT 05/04/17 0000 Signed Impressions: Service Date/Time: Thursday, May 04, 2017 17:50 - CONCLUSION: 1. Diffuse cellulitis of the left buttock as well as induration and swelling of the left perineum in the region of the perianal/perilabia tissues. Gynecologic evaluation would be helpful for further evaluation. No definite drainable abscess is confirmed. Leif Vallejo MD Assessment and Plan Assessment and Plan IMPRESSION Possible sepsis due to significant cellulitis L buttock, with abscess, now spontaneously draining - fever, leukocytosis, tachycardia L 3rd toe cellulitis Known IVDU PCN allergy (when she was very young), but patient states she has tolerated Keflex in the past RECOMMENDATION Continue IV vanco Continue IV Azactam Ok to D/C Flagyl Follow C/S Monitor progress Will determine course of Abx once work-up completed and cultures finalized I will follow along with you Thank you for this consultation Discussed Condition With D/W RN D/W Dr Shields Explained plan to the patient Argentina Miller MD May 06, 2017 13:17
[2017-05-06] MEDS: POTASSIUM CHLOR 10 MEQ PREMIX 100 ML IV SCH ×3 (15:00→17:00)
[2017-05-06] MEDS ORDERED: PHARMACY ORDERED LAB ONE (20:45)
[2017-05-07] VITALS: BP 120/74; PULSE 92; RESP 17; TEMP 97.8; O2SAT 100
[2017-05-07] MEDS: KETOROLAC TROMETHAMINE 30 MG/ML (IVP) VIAL IV PUSH SCH ×4 (00:08→18:49)
[2017-05-07] MEDS: LORazepam 2 MG/ML VIAL IV PUSH PRN ×2 (00:29→12:15)
[2017-05-07] MEDS: VANCOMYCIN 1,000 MG/NS 250 ML IV SCH ×10 (01:09→22:07)
[2017-05-07 04:00] VITALS: BP 108/66; PULSE 99; RESP 17; TEMP 96; O2SAT 100
[2017-05-07] MEDS: AZTREONAM INJ 1,000 MG in SODIUM CHLORIDE 0.9% INJ 100 ML IV SCH ×3 (06:26→23:15)
[2017-05-07 08:00] VITALS: BP 104/66; PULSE 91; RESP 18; TEMP 96.5; O2SAT 99
[2017-05-07] MEDS: ENOXAPARIN SODIUM 40 MG/0.4 ML SYRINGE SQ SCH (08:50)
[2017-05-07] MEDS: FAMOTIDINE 20 MG TAB PO SCH ×2 (08:51→20:31)
[2017-05-07] MEDS: DOCUSATE SODIUM 50 MG/SENNA 8.6 MG TAB PO SCH ×2 (08:51→20:31)
[2017-05-07] MEDS: POTASSIUM CHLORIDE 20 MEQ CONTROLLED RELEASE TAB PO SCH ×2 (08:51→20:31)
[2017-05-07] MEDS: BACITRACIN OINT 0.9 GM PKT TOPICAL SCH (08:52)
[2017-05-07] MEDS: SODIUM CHLORIDE 0.9% FLUSH 10 ML FLUSH IV FLUSH SCH ×2 (08:52→20:30)
--- NOTE | 2017-05-07 10:52 | HHI.PR ---
Subjective Remarks patient complains of pain gluteal area, left foot pain denies any dysuria Objective Vitals Vital Signs Date Time Temp Pulse Resp B/P (MAP) Pulse Ox O2 Delivery O2 Flow Rate FiO2 05/07/17 04:00 96.0 99 17 108/66 (80) 100 05/07/17 00:00 97.8 92 17 120/74 (89) 100 05/06/17 20:00 96.7 98 17 125/79 (94) 100 05/06/17 18:39 18 05/06/17 18:12 18 05/06/17 17:54 18 05/06/17 16:00 96.4 104 20 105/66 (79) 98 05/06/17 12:00 96.8 105 20 106/68 (81) 98 I/O 05/06/17 05/06/17 05/06/17 05/07/17 05/07/17 05/07/17 07:00 15:00 23:00 07:00 15:00 23:00 Intake Total 1930 ml 2500 ml 240 ml Balance 1930 ml 2500 ml 240 ml Intake Oral 240 ml 2400 ml 240 ml IV Total 1690 ml 100 ml # Voids 3 10 4 # Bowel Movements 0 Result Diagram: 05/06/17 0550 05/06/17 0550 Imaging Last Impressions Toe X-Ray 05/04/17 1904 Signed Impressions: Service Date/Time: Thursday, May 04, 2017 19:31 - CONCLUSION: 1. Soft tissue swelling involving the left third digit. 2. No acute fracture or dislocation. Leif Vallejo MD Chest X-Ray 05/04/17 1509 Signed Impressions: Service Date/Time: Thursday, May 04, 2017 15:33 - CONCLUSION: 1. Rotatory scoliosis. The lungs are clear. John Stephens MD Pelvis CT 05/04/17 0000 Signed Impressions: Service Date/Time: Thursday, May 04, 2017 17:50 - CONCLUSION: 1. Diffuse cellulitis of the left buttock as well as induration and swelling of the left perineum in the region of the perianal/perilabia tissues. Gynecologic evaluation would be helpful for further evaluation. No definite drainable abscess is confirmed. Leif Vallejo MD Objective Remarks skin- with multiple dried wounds, upper back and forearms and legs awake and alert, oriented x 3 anicteric lungs clear regular rhythm abdomen soft left glutea area- with marked erythema and - less induration compared to yesterdat left inner aspect of thigh- now draining purulent fluid left 3rd toe with open wound with swelling and erythema- decrease no labial swelling ++ DP, PT A/P Problem List: (1) Sepsis ICD Code: A41.9 - Sepsis, unspecified organism (2) Cellulitis and abscess of buttock ICD Code: L02.31 - Cutaneous abscess of buttock; L03.317 - Cellulitis of buttock (3) Lower extremity cellulitis ICD Code: L03.119 - Cellulitis of unspecified part of limb (4) Hypokalemia ICD Code: E87.6 - Hypokalemia (5) IVDU (intravenous drug user) ICD Code: F19.90 - Other psychoactive substance use, unspecified, uncomplicated (6) Tobacco abuse ICD Code: Z72.0 - Tobacco use Assessment and Plan 32 years old IVDU Sepsis multiple sources- left gluteal cellulitis/left inner thigh abscess- now spontaneously draining Left foot cellulitis /3rd toe infected open wound Multiple skin lesions/scab wounds- dry- back and forearms/legs specimen sent for gram stain and c and s Continue on Vanco/Flagyl and Azactam d/w GS- Dr. Agudelo - r/o perirectal involvement- consult CRS Podiatry ff ID ff- on Azactam and Vancomycin GS - Dr. Montenegro- he wrote for change in pain regimen and will address pain meds Hypokalemia:- replace IV and po. Increased po KCL to bid. recheck today IVDU: w/ Cocaine/Heroin, last use 05/03 Ativan prn for withdrawal. counselled Tobacco Abuse: Counselled. NicoDerm/Ativan prn DVT prophylaxis patient up and ambulating around- room Jeff Shields MD May 07, 2017 10:52
[2017-05-07] MEDS: HYDROmorphone HCL PF 4 MG/ML VIAL IV PUSH PRN (11:03)
[2017-05-07 12:00] VITALS: BP 113/66; PULSE 104; RESP 18; TEMP 96.6; O2SAT 98
[2017-05-07] MEDS: NS + KCL 20 MEQ INJ 1,000 ML IV SCH ×2 (12:23→20:34)
--- NOTE | 2017-05-07 13:16 | HHI.PR ---
Addendum to Inpatient Note Addendum Reason: Additional Documentation Additional Information patient wants to sign out AMA agitated father states that she expressed suicidal ideations last evening to him per staff nurse, and father says patient gets hallucinations with Dilaudid will cerrato act patient get a psychiatry consult Hold dilaudid. Per father- in the past- Dilaudid makes her confused give Geodon 10 mg IM prn x 1 Jeff Shields MD May 07, 2017 13:16
--- NOTE | 2017-05-07 14:14 | HHI.PR ---
Subjective Subjective Notes She is agitated and somewhat confused. C/o less pain to buttock. She began to have purulent drainage yesterday. Objective Vitals/I&O Vital Signs Date Time Temp Pulse Resp B/P (MAP) Pulse Ox O2 Delivery O2 Flow Rate FiO2 05/07/17 08:00 96.5 91 18 104/66 (79) 99 05/04/17 19:41 Room Air Labs Laboratory Tests Test 05/07/17 00:24 05/07/17 04:55 05/07/17 05:05 Vancomycin Level Trough 9.9 Urine Opiates Screen POS Urine Barbiturates Screen NEG Urine Amphetamines Screen POS Urine Benzodiazepines Screen NEG Urine Cocaine Screen POS Urine Cannabinoids Screen NEG [place] Level LESS THAN 0.1 Date/Time Source Procedure Growth Status 05/04/17 16:30 Blood Peripheral Aerobic Blood Culture - Preliminary NO GROWTH IN 3 DAYS Resulted 05/04/17 16:30 Blood Peripheral Anaerobic Blood Culture - Preliminary NO GROWTH IN 3 DAYS Resulted 05/06/17 11:24 Wound Buttock Gram Stain - Final Resulted 05/06/17 11:24 Wound Buttock Wound Culture Pending Resulted Narrative Exam Agitated, currently restrained. Speaking with some incoherence Examined in presence of female nurse Decreased erythema left buttock Purulent drainage left perineum A/P Assessment and Plan 32 yo F left buttock and perineal abscess, spontaneously draining Proceed to OR tomorrow for exam under anesthesia and incision and drainage. Grayson Agudelo MD May 07, 2017 14:14
[2017-05-07] MEDS ORDERED: ZIPRASIDONE MESYLATE 20 MG VIAL IM ONE (14:30)
[2017-05-07 16:00] VITALS: BP 134/75; PULSE 105; RESP 22; TEMP 97.7; O2SAT 98
[2017-05-07] MEDS: POTASSIUM CHLOR 10 MEQ PREMIX 100 ML IV SCH (18:46)
[2017-05-07 20:00] VITALS: BP 105/62; PULSE 91; RESP 20; TEMP 96.3; O2SAT 92
[2017-05-08] MEDS: POTASSIUM CHLOR 10 MEQ PREMIX 100 ML IV SCH ×2 (00:39→03:08)
[2017-05-08] MEDS: KETOROLAC TROMETHAMINE 30 MG/ML (IVP) VIAL IV PUSH SCH ×5 (00:40→23:11)
[2017-05-08 00:48] VITALS: BP 107/75; PULSE 70; RESP 18; TEMP 96.5; O2SAT 99
[2017-05-08] MEDS ORDERED: LACTATED RINGER'S 1000 ML IV PRN (04:15)
[2017-05-08] MEDS: AZTREONAM INJ 1,000 MG in SODIUM CHLORIDE 0.9% INJ 100 ML IV SCH ×3 (04:55→20:43)
[2017-05-08] MEDS: VANCOMYCIN 1,000 MG/NS 250 ML IV SCH ×4 (06:00→14:51)
[2017-05-08 06:45] LABS: BASOPHIL # 0.1 TH/MM3 (0-0.2); BASOPHIL % 0.6 % (0.0-2.0); EOSINOPHIL # 0.3 TH/MM3 (0-0.4); EOSINOPHIL % 2.7 % (0.0-4.0); HEMATOCRIT 30.5 % (35.0-46.0); LYMPH % 20.3 % (9.0-44.0); MEAN CELL VOLUME 86.4 FL (80.0-100.0); MEAN CORPUSCULAR HEMOGLOBIN 29.1 PG (27.0-34.0); MEAN CORPUSCULAR HGB CONC 33.6 % (32.0-36.0); MONO % 6.7 % (0.0-8.0); NEUT % 69.7 % (16.0-70.0); PLATELET COUNT 473 TH/MM3 (150-450); RED BLOOD COUNT 3.53 MIL/MM3 (4.00-5.30); RED CELL DISTRIBUTION WIDTH 13.6 % (11.6-17.2); WHITE BLOOD COUNT 10.1 TH/MM3 (4.0-11.0)
[2017-05-08 06:48] LABS: HEMO FLAGS AUTO DIFF
[2017-05-08 08:00] VITALS: BP 96/59; PULSE 77; RESP 18; TEMP 97.7; O2SAT 95
[2017-05-08 08:01] LABS: BICARBONATE 23.8 MEQ/L (21.0-32.0); POTASSIUM 4.2 MEQ/L (3.5-5.1)
[2017-05-08] MEDS: ENOXAPARIN SODIUM 40 MG/0.4 ML SYRINGE SQ SCH (08:20)
[2017-05-08] MEDS: POTASSIUM CHLORIDE 20 MEQ CONTROLLED RELEASE TAB PO SCH ×2 (08:20→20:44)
[2017-05-08] MEDS: NS + KCL 20 MEQ INJ 1,000 ML IV SCH ×2 (08:20→16:15)
[2017-05-08] MEDS: SODIUM CHLORIDE 0.9% FLUSH 10 ML FLUSH IV FLUSH SCH ×2 (08:20→20:43)
[2017-05-08] MEDS: FAMOTIDINE 20 MG TAB PO SCH ×2 (08:27→20:44)
[2017-05-08] MEDS: DOCUSATE SODIUM 50 MG/SENNA 8.6 MG TAB PO SCH ×2 (08:27→21:00)
[2017-05-08] MEDS: BACITRACIN OINT 0.9 GM PKT TOPICAL SCH (08:30)
[2017-05-08] MEDS ORDERED: ACETAMINOPHEN 1000 MG/100 ML 0 ML IV ONE (08:55)
[2017-05-08] MEDS ORDERED: HYDROmorphone HCL PF 2 MG/ML VIAL ONE ×2 (08:56→08:57)
[2017-05-08] MEDS ORDERED: ACETAMINOPHEN 1000 MG/100 ML 100 ML IV ONE (08:57)
[2017-05-08] MEDS ORDERED: MIDAZOLAM HCL 5 MG/5 ML VIAL ONE (08:57)
[2017-05-08] MEDS ORDERED: LORazepam 2 MG/ML VIAL IV PUSH PRN (09:00)
[2017-05-08] MEDS ORDERED: BUPIVACAINE HCL PF 0.5% 30 ML VIAL ONE (09:09)
--- NOTE | 2017-05-08 09:10 | HHI.PR ---
Subjective Remarks seen 1:15 pm- back from surgery- went for I and D left buttock seen with father at bedside, no suicidal ideations expressed today cooperative complains of post- op site pain Objective Vitals Vital Signs Date Time Temp Pulse Resp B/P (MAP) Pulse Ox O2 Delivery O2 Flow Rate FiO2 05/08/17 08:00 97.7 77 18 96/59 (71) 95 05/08/17 00:48 96.5 70 18 107/75 (86) 99 05/07/17 20:00 96.3 91 20 105/62 (76) 92 05/07/17 16:00 97.7 105 22 134/75 (94) 98 05/07/17 12:00 96.6 104 18 113/66 (82) 98 I/O 05/07/17 05/07/17 05/07/17 05/08/17 05/08/17 05/08/17 07:00 15:00 23:00 07:00 15:00 23:00 Intake Total 240 ml 950 ml 2003 ml 373 ml Output Total 800 ml 500 ml Balance 240 ml 150 ml 2003 ml -127 ml Intake Oral 240 ml 600 ml IV Total 350 ml 2003 ml 373 ml Output Urine Total 800 ml 500 ml # Voids 4 3 2 # Bowel Movements 0 Result Diagram: 05/08/17 0500 05/08/17 0500 Imaging Last Impressions Toe X-Ray 05/04/17 1904 Signed Impressions: Service Date/Time: Thursday, May 04, 2017 19:31 - CONCLUSION: 1. Soft tissue swelling involving the left third digit. 2. No acute fracture or dislocation. Leif Vallejo MD Chest X-Ray 05/04/17 1509 Signed Impressions: Service Date/Time: Thursday, May 04, 2017 15:33 - CONCLUSION: 1. Rotatory scoliosis. The lungs are clear. John Stephens MD Pelvis CT 05/04/17 0000 Signed Impressions: Service Date/Time: Thursday, May 04, 2017 17:50 - CONCLUSION: 1. Diffuse cellulitis of the left buttock as well as induration and swelling of the left perineum in the region of the perianal/perilabia tissues. Gynecologic evaluation would be helpful for further evaluation. No definite drainable abscess is confirmed. Leif Vallejo MD Objective Remarks skin- with multiple scab/ wounds, upper back and forearms and legs awake and alert, oriented x 3 anicteric lungs clear regular rhythm abdomen soft left glutea area- - post op dressing in place left 3rd toe with open wound, dry with swelling and erythema- decrease ++ DP, PT Procedures 06/07- I and D left buttock abscess A/P Problem List: (1) Sepsis ICD Code: A41.9 - Sepsis, unspecified organism (2) Cellulitis and abscess of buttock ICD Code: L02.31 - Cutaneous abscess of buttock; L03.317 - Cellulitis of buttock (3) Lower extremity cellulitis ICD Code: L03.119 - Cellulitis of unspecified part of limb (4) Hypokalemia ICD Code: E87.6 - Hypokalemia (5) IVDU (intravenous drug user) ICD Code: F19.90 - Other psychoactive substance use, unspecified, uncomplicated (6) Tobacco abuse ICD Code: Z72.0 - Tobacco use Assessment and Plan 32 years old IVDU Sepsis multiple sources- left gluteal cellulitis/left inner thigh abscess- S/P I and D 06/07 Left foot cellulitis /3rd toe infected open wound Multiple skin lesions/scab wounds- dry- back and forearms/legs specimen sent for gram stain and c and s 06/06- d/w - Dr. Agudelo - r/o perirectal involvement- consult CRS Podiatry ff ID ff- on Azactam and Vancomycin prn pain meds Substance abused induced mood disorder r/o underlying psychiatric disorder yesterday was aggressive and reportedly expressed suicidal ideations to the father staff nurse confiscated some syringes, a spoon and white powder stuff from her belongings psychiatry consulted Hypokalemia:- Improved. KCL to bid. IVDU: w/ Cocaine/Heroin, last use 05/03 Ativan prn for withdrawal. counselled Tobacco Abuse: Counselled. NicoDerm/Ativan prn DVT prophylaxis patient up and ambulating around- room 06/07- d/w staff nurse- this am- found in her belonging- 2 syringes and a spoon with some white powder d/w Dr. Agudelo- post op - cancel CRS consult Jeff Shields MD May 08, 2017 09:09
[2017-05-08] MEDS ORDERED: BUPIVACAINE/EPINEPHRINE 0.5% 50 ML VIAL ONE (09:36)
[2017-05-08 09:37] LABS: BANDS 12 % (0-6); EOSINOPHILS 1 % (0-4); NEUTROPHIL # MANUAL DIFF 8.7 TH/MM3 (1.8-7.7); POLYS (SEG NEUTROPHILS) 74 % (16-70); WBC DIFF SAMPLE 100
[2017-05-08 09:38] LABS: PLATELET ESTIMATE SMEAR HIGH (NORMAL); PLATELET MORPHOLOGY NORMAL (NORMAL); SCAN/DIFF FINAL DIFF MANUAL
--- NOTE | 2017-05-08 10:00 | PD.OP ---
cc: Grayson Agudelo MD Operative Report Date of Surgery: May 08, 2017 Preoperative Diagnosis: (1) Perineal abscess (2) Cellulitis and abscess of buttock Postoperative Diagnosis: (1) Perineal abscess Procedure: Exam under anesthesia Incision and drainage left perineal abscess Anesthesia: KAREN Surgeon: Grayson Agudelo Electrode Turner And Finisher(s): Staff Operation and Findings: EBL: 20 cc Operative findings: The left buttock and perineal cellulitis had coalesced into a left perineal/groin abscess inferior to the left labia. It had been spontaneously draining. Procedure in detail: The patient was taken to the operating room and placed in the supine position. Gen. endotracheal anesthesia was induced. The patient was placed in lithotomy position and the perineal area was prepped and draped in usual sterile fashion. The left buttock and perineal abscess versus had coalesced into a site of drainage inferior to the left labia and lateral to the anus about 6 cm. There were 2 areas of spontaneous drainage and these were connected with a 3 cm incision. The cavity tracked inferiorly a few centimeters and superiorly 1-2 cm. The incision was extended inferiorly slightly. There was some purulent fluid noted in the exterior portion of the vagina. The vagina was prepped and evaluated and there was no external abscess or induration. A digital rectal exam was performed and there was no fullness or induration around the anal canal or lower rectum. The abscess cavity did not extend into the perianal or perirectal spaces. At this point hemostasis was achieved in the abscess cavity was irrigated with a mixture of saline and peroxide. A damp 4 x 4 sponge was placed for packing and a dry dressing applied. The patient tolerated the procedure well and was extubated and taken to PACU in stable condition. Grayson Agudelo MD May 08, 2017 10:00
[2017-05-08] MEDS ORDERED: DO NOT ADM ANY ANTICOAGULANT DRUGS PRN (10:11)
[2017-05-08] MEDS ORDERED: *morphine SULFATE 8 MG/ML PERIprocedure ONLY ONE (10:33)
[2017-05-08 12:00] VITALS: BP_SYST 106; BP_SYST 98; BP_DIAS 62; BP_DIAS 65; PULSE 59; PULSE 88; RESP 18; TEMP 96.5; TEMP 97.5; O2SAT 100; O2SAT 95
[2017-05-08] MEDS ORDERED: DEXAMETHASONE SOD PHOS 4 MG/ML VIAL IV ONE (12:00)
[2017-05-08] MEDS ORDERED: LACTATED RINGER'S 1000 ML INJ 1,000 ML IV ONE (12:00)
[2017-05-08] MEDS ORDERED: GLYCOPYRROLATE 1 MG/5 ML SYRINGE IV PUSH ONE (12:00)
[2017-05-08] MEDS ORDERED: PROPOFOL 200 MG/20 ML AMP IV ONE (12:00)
[2017-05-08] MEDS ORDERED: ROCURONIUM INJ 50 MG/5 ML SYRINGE IV PUSH ONE (12:00)
[2017-05-08] MEDS ORDERED: LIDOCAINE HCL 1% PF 5 ML AMPULE OTHER ONE (12:00)
[2017-05-08] MEDS ORDERED: NEOSTIGMINE 3 MG/3 ML SYR IV ONE (12:00)
[2017-05-08] MEDS ORDERED: ONDANSETRON HCL 4 MG/2 ML VIAL IV PUSH ONE (12:00)
[2017-05-08] MEDS ORDERED: PHARMACY ORDERED LAB ONE (12:45)
--- NOTE | 2017-05-08 14:34 | PD.PSY.CON ---
Provisional Diagnosis Admission Date May 04, 2017 at 19:24 [place] I. Adjustment disorder with disturbance of conduct, polysubstance dependence including amphetamines, cocaine, cannabis, IV drug user, reported bipolar disorder [place] II. Deferred [place] III. Perennial abscess [place] IV. Sustained drug use, homeless, unemployed, multiple ER visits [place] V. 55 History of Present Illness Service Psychiatry Consult Requested By Dr. Shields Reason for Consult Agitation and disorganized behavior in the floor Primary Care Physician Rula Francisco MD HPI The patient is a 32-year-old woman, homeless, unemployed, with extensive psychiatric history of polysubstance dependence including amphetamines , cocaine, opiates, cannabis, history of IV drug use, self reported bipolar disorder, no previous psychiatric hospitalizations, no previous suicidal attempts, left buttock and perineal abscess, spontaneously draining, ER visits due to drug-related problems, no significant medical history, who was brought to the hospital due to perineal abscess, spontaneously draining. Patient was taken to the OR today for drainage. At the moment of the psychiatric evaluation patient was not present in her room and she was in the OR. However we were able to get collateral information for the psychiatric assessment with her father and her mother, Brett Chong and Marlys Chong, they both say that the patient has an extensive history of drug abuse since the age of [age] years old. They say that she will use whatever drug she can find and she can grab with her hands. He reported that she has a psychiatric history of bipolar disorder and anxiety, she has been in psychotropics, including BuSpar and others that there are no at this moment. Patient doesn't have an objective suicidal attempt in the past, but she has made multiple suicidal statements. Patient initially has mood swings, she has poor impulse control, she has had perceptual disturbances in the past, her voices, he also has showed delusions in the past, however they claim that when she has been taking her medications and no using drugs she is normal. Patient has a daughter, she is in the custody of patient's mother, the father of the child is in nursing home due to drug-related issues. A she was living in a sober house, [facility], but she lost her bed due to relapse, so at this moment she is homeless. Review of Systems ROS Limitations: Uncooperative Past Family Social History Coded Allergies: penicillin G (Unverified Allergy, Intermediate, 05/04/17) hydromorphone (Verified Allergy, Unknown, hallucinations, 05/08/17) per pt's mother-pt has severe hallucinations when she takes dilaudid Discontinued Reported Medications Sertraline (Zoloft) 100 Mg Tab, 100 MG PO DAILY, #30 TAB 0 Refills 11/29/16 Buspirone (Buspirone) 15 Mg Tab, 15 MG PO DAILY for Anxiety, TAB 0 Refills 11/29/16 Trazodone (Trazodone) 50 Mg Tab, 50 MG PO HS for Control Depression, #30 TAB 0 Refills 11/29/16 Discontinued Scripts Metronidazole (Flagyl) 500 Mg Tab, 500 MG PO BID for Infection for 7 Days, TAB 0 Refills Prov:Cristina Diaz MD 01/17/17 Azithromycin (Zithromax Z-Rick) 250 Mg Dspk, 250 MG PO DIRECTED for Infection , #1 DSPK 0 Refills 500 MG (2 tabs) day 1, then 1 tab days 2-5. Prov:Cristina Diaz MD 01/17/17 Current Medications Medications (Trade) Dose Ordered Sig/Jenifer Route Start Time Stop Time Status Last Admin Pharmacy Profile Note 0 ml @ 0 mls/hr UNSCH OTHER 05/04/17 19:45 Aztreonam 1000 mg/ Sodium Chloride 100 ml @ 200 mls/hr Q8H IV 05/04/17 21:00 05/08/17 13:29 (NS Flush) 2 ml UNSCH PRN IV FLUSH 05/04/17 19:45 05/06/17 15:25 (NS Flush) 2 ml BID IV FLUSH 05/04/17 21:00 05/05/17 09:36 (Zofran Inj) 4 mg Q6H PRN IVP 05/04/17 19:45 (Lovenox Inj) 40 mg Q24H SQ 05/05/17 09:00 05/05/17 09:34 (Tylenol) 650 mg Q6H PRN PO 05/04/17 19:45 (Lyubov-Colace) 1 tab BID PO 05/04/17 21:00 05/07/17 20:31 (Milk Of Magnesia Liq) 30 ml Q12H PRN PO 05/04/17 19:45 (Senokot) 17.2 mg Q12H PRN PO 05/04/17 19:45 (Dulcolax Supp) 10 mg DAILY PRN RECTAL 05/04/17 19:45 (Lactulose Liq) 30 ml DAILY PRN PO 05/04/17 19:45 (Pepcid) 20 mg BID PO 05/05/17 09:00 05/07/17 20:31 Vancomycin HCl 1000 mg/Sodium Chloride 250 ml @ 250 mls/hr Q8H IV 05/05/17 05:00 05/08/17 06:00 (Bacitracin Oint Packet) 0.9 gm DAILY TOPICAL 05/05/17 09:00 05/08/17 08:30 Potassium Chloride/Sodium Chloride 1,000 ml @ 100 mls/hr Q10H IV 05/05/17 08:15 05/08/17 08:20 (Roxicodone) 10 mg Q4H PO 05/06/17 13:00 05/08/17 12:54 (Toradol Inj) 30 mg Q6HR IV PUSH 05/06/17 12:00 05/11/17 11:59 05/08/17 13:31 (KCl) 20 meq Q12HR PO 05/06/17 21:00 05/07/17 20:31 Lactated Ringer's 1,000 ml @ 30 mls/hr Q24H PRN IV 05/08/17 04:15 05/11/17 04:14 (Ativan Inj) 1 mg Q4H PRN IV PUSH 05/08/17 09:00 Miscellaneous Information ALL NURSING DEPARTME... UNSCH PRN .XX 05/08/17 10:11 05/09/17 10:10 Family History Patient has an aunt with schizophrenia Social History Patient is now homeless, she was living in a sober house, she is unemployed, single, she has a and 8 years old daughter who is in custody of patient's mother 's Patient's Strengths (min. 2) Family support Physical Exam Vital Signs Vital Signs Date Time Temp Pulse Resp B/P (MAP) Pulse Ox O2 Delivery O2 Flow Rate FiO2 05/08/17 12:00 96.5 59 18 98/65 (76) 95 05/08/17 10:15 Nasal Cannula 2 I/O 05/08/17 05/08/17 05/09/17 08:00 16:00 00:00 Intake Total 2003 ml 1373 ml Output Total 500 ml 1500 ml Balance 1503 ml -127 ml Lab Results Test 05/08/17 05:00 05/08/17 13:56 White Blood Count 10.1 TH/MM3 Red Blood Count 3.53 MIL/MM3 Hemoglobin 10.3 GM/DL Hematocrit 30.5 % Mean Corpuscular Volume 86.4 FL Mean Corpuscular Hemoglobin 29.1 PG Mean Corpuscular Hemoglobin Concent 33.6 % Red Cell Distribution Width 13.6 % Platelet Count 473 TH/MM3 Mean Platelet Volume 9.4 FL Neutrophils (%) (Auto) 69.7 % Lymphocytes (%) (Auto) 20.3 % Monocytes (%) (Auto) 6.7 % Eosinophils (%) (Auto) 2.7 % Basophils (%) (Auto) 0.6 % Neutrophils # (Auto) 7.0 TH/MM3 Lymphocytes # (Auto) 2.0 TH/MM3 Monocytes # (Auto) 0.7 TH/MM3 Eosinophils # (Auto) 0.3 TH/MM3 Basophils # (Auto) 0.1 TH/MM3 CBC Comment AUTO DIFF Differential Total Cells Counted 100 Neutrophils % (Manual) 74 % Band Neutrophils % 12 % Lymphocytes % 7 % Monocytes % 6 % Eosinophils % 1 % Neutrophils # (Manual) 8.7 TH/MM3 Differential Comment FINAL DIFF MANUAL Platelet Estimate HIGH Platelet Morphology Comment NORMAL Blood Urea Nitrogen 2 MG/DL Creatinine 0.38 MG/DL Random Glucose 78 MG/DL Calcium Level 8.1 MG/DL Sodium Level 142 MEQ/L Potassium Level 4.2 MEQ/L Chloride Level 110 MEQ/L Carbon Dioxide Level 23.8 MEQ/L Anion Gap 8 MEQ/L Estimat Glomerular Filtration Rate 198 ML/MIN Date/Time Source Procedure Growth Status 05/04/17 16:30 Blood Peripheral Aerobic Blood Culture - Preliminary NO GROWTH IN 4 DAYS Resulted 05/04/17 16:30 Blood Peripheral Anaerobic Blood Culture - Preliminary NO GROWTH IN 4 DAYS Resulted 05/06/17 11:24 Wound Buttock Gram Stain - Final Complete 05/06/17 11:24 Wound Culture - Final S. Aureus Mrsa Complete Mental Status Examination Patient was not seen because she was in the OR. Assessment & Plan Problem List: (1) Adjustment disorder with disturbance of conduct ICD Codes: F43.24 - Adjustment disorder with disturbance of conduct Assessment & Plan: Patient is a 32-year-old woman, with self-report of bipolar disorder, polysubstance dependence, history of erratic and impulsive behavior, no compliant with psychotropics, who has been agitated and aggressive during this hospitalization. Patient could not being seen by the psychiatric team today because she was in the OR, but with worked together with family members collecting collateral information for the psychiatric assessment. As per family member patient has been abusing drugs for a long time, patient can be potentially aggressive and demanding. Patient has an elevated risk to become manipulative and aggressive in the medical floor. We will recommend to use Haldol 5 mg by mouth or IM every 8 hours when necessary aggressive behavior or agitation another alternative Thorazine 100 mg IM or by mouth every 8 hours aggressive behavior and agitation. Would try to avoid narcotics as much as possible, including benzodiazepine and opiates, due to her history of drug dependence. Patient still needs to be seen in order to complete the psychiatric assessment. We will follow-up. Assessment & Plan Estimated LOS: Chin Browning MD May 08, 2017 14:34
[2017-05-08 16:00] VITALS: BP 106/62; PULSE 88; RESP 18; TEMP 97.5; O2SAT 100
[2017-05-08] MEDS ORDERED: NICOTINE 14 MG/24 HR PATCH T-DERMAL ONE (19:00)
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
[2017-05-08 20:59] VITALS: BP 98/65; PULSE 97; RESP 18; TEMP 96.3; O2SAT 98
[2017-05-08] MEDS: VANCOMYCIN INJ 1,250 MG in SODIUM CHLOR 0.9% 250 ML INJ 250 ML IV SCH (22:06)
[2017-05-09] MEDS: NS + KCL 20 MEQ INJ 1,000 ML IV SCH ×3 (03:35→18:45)
[2017-05-09] MEDS: AZTREONAM INJ 1,000 MG in SODIUM CHLORIDE 0.9% INJ 100 ML IV SCH ×2 (05:18→13:14)
[2017-05-09] MEDS: KETOROLAC TROMETHAMINE 30 MG/ML (IVP) VIAL IV PUSH SCH ×3 (05:26→17:58)
[2017-05-09] MEDS: VANCOMYCIN INJ 1,250 MG in SODIUM CHLOR 0.9% 250 ML INJ 250 ML IV SCH ×3 (06:11→21:26)
[2017-05-09 08:00] VITALS: BP 119/79; PULSE 65; RESP 16; TEMP 97.2; O2SAT 100
[2017-05-09] MEDS: SODIUM CHLORIDE 0.9% FLUSH 10 ML FLUSH IV FLUSH SCH ×2 (09:00→21:00)
[2017-05-09] MEDS: BACITRACIN OINT 0.9 GM PKT TOPICAL SCH (09:00)
[2017-05-09 09:07] VITALS: O2SAT 99
[2017-05-09] MEDS: ENOXAPARIN SODIUM 40 MG/0.4 ML SYRINGE SQ SCH (10:26)
[2017-05-09] MEDS: DOCUSATE SODIUM 50 MG/SENNA 8.6 MG TAB PO SCH ×2 (10:27→21:29)
[2017-05-09] MEDS: POTASSIUM CHLORIDE 20 MEQ CONTROLLED RELEASE TAB PO SCH ×2 (10:27→21:29)
[2017-05-09] MEDS: FAMOTIDINE 20 MG TAB PO SCH ×2 (10:27→21:30)
[2017-05-09 12:00] VITALS: BP 101/78; PULSE 54; RESP 18; TEMP 97.6; O2SAT 100
--- NOTE | 2017-05-09 12:39 | HHI.PR ---
Subjective Subjective Notes Doing well. Wondering when she can go home. Objective Vitals/I&O Vital Signs Date Time Temp Pulse Resp B/P (MAP) Pulse Ox O2 Delivery O2 Flow Rate FiO2 05/09/17 09:07 99 05/09/17 08:00 97.2 65 16 119/79 (92) 05/08/17 22:14 Nasal Cannula 2.00 Labs Laboratory Tests Test 05/08/17 13:56 Vancomycin Level Trough 11.7 Date/Time Source Procedure Growth Status 05/04/17 16:30 Blood Peripheral Aerobic Blood Culture - Final NO GROWTH IN 5 DAYS Complete 05/04/17 16:30 Blood Peripheral Anaerobic Blood Culture - Final NO GROWTH IN 5 DAYS Complete 05/06/17 11:24 Wound Buttock Gram Stain - Final Complete 05/06/17 11:24 Wound Culture - Final S. Aureus Mrsa Complete Radiology Last Impressions Toe X-Ray 05/04/17 1904 Signed Impressions: Service Date/Time: Thursday, May 04, 2017 19:31 - CONCLUSION: 1. Soft tissue swelling involving the left third digit. 2. No acute fracture or dislocation. Leif Vallejo MD Chest X-Ray 05/04/17 1509 Signed Impressions: Service Date/Time: Thursday, May 04, 2017 15:33 - CONCLUSION: 1. Rotatory scoliosis. The lungs are clear. John Stephens MD Pelvis CT 05/04/17 0000 Signed Impressions: Service Date/Time: Thursday, May 04, 2017 17:50 - CONCLUSION: 1. Diffuse cellulitis of the left buttock as well as induration and swelling of the left perineum in the region of the perianal/perilabia tissues. Gynecologic evaluation would be helpful for further evaluation. No definite drainable abscess is confirmed. Leif Vallejo MD Narrative Exam [place] today Left buttock wound with iodoform in place, small amt purulence- surrounding tissue less indurated A/P Assessment and Plan 32 yo F left buttock and perineal abscess POD 1 I&D Infection healing well. Cont BID dressing changes. She is ok for dc home from surgical standpoint. F/u with me in 10 days. Magnus,Grayson BENITEZ May 09, 2017 12:39
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
--- NOTE | 2017-05-09 13:29 | HHI.IDPN ---
Subjective Subjective Remarks Patient s a 32-year-old female with known active IV drug use, presented to the hospital complaining of pain, redness, and swelling, in her left buttocks. She was also complaining of some redness on her left hand and left third toe. Patient also complains of multiple lesions in her skin that she picks on. There has been fever and chills. Her WBC was initially 22,000. Patient was started on broad-spectrum antibiotics, and today she started having drainage in the left buttock area. Patient still complaining of significant pain especially in the left buttock region. She denies any respiratory, GI or any urinary complaints. Her blood cultures are negative so far. Her WBC is still elevated but a little bit better compared to admission. CT of the pelvis just showed diffuse cellulitis with no evidence of fluid collection. Notes reviewed D/W Dr Agudelo patient had I and D perineal/buttock abscess yesterday C/S MRSA Temps ok Pain better Antibiotics Vancomycin Azactam Lines PIV Past Medical History One and NVD Hep C IVDU Past Surgical History UH repair Allergies: Coded Allergies: penicillin G (Unverified Allergy, Intermediate, 05/04/17) hydromorphone (Verified Allergy, Unknown, hallucinations, 05/08/17) per pt's mother-pt has severe hallucinations when she takes dilaudid Objective . Vital Signs Date Time Temp Pulse Resp B/P (MAP) Pulse Ox O2 Delivery O2 Flow Rate FiO2 05/09/17 12:00 97.6 54 18 101/78 (86) 100 05/09/17 09:07 99 05/09/17 08:00 97.2 65 16 119/79 (92) 100 05/08/17 22:14 Nasal Cannula 2.00 05/08/17 20:59 96.3 97 18 98/65 (76) 98 05/08/17 16:00 97.5 88 18 106/62 (77) 100 . Laboratory Tests Test 05/08/17 05:00 White Blood Count 10.1 TH/MM3 Red Blood Count 3.53 MIL/MM3 Hemoglobin 10.3 GM/DL Hematocrit 30.5 % Mean Corpuscular Volume 86.4 FL Mean Corpuscular Hemoglobin 29.1 PG Mean Corpuscular Hemoglobin Concent 33.6 % Red Cell Distribution Width 13.6 % Platelet Count 473 TH/MM3 Mean Platelet Volume 9.4 FL Neutrophils (%) (Auto) 69.7 % Lymphocytes (%) (Auto) 20.3 % Monocytes (%) (Auto) 6.7 % Eosinophils (%) (Auto) 2.7 % Basophils (%) (Auto) 0.6 % Neutrophils # (Auto) 7.0 TH/MM3 Lymphocytes # (Auto) 2.0 TH/MM3 Monocytes # (Auto) 0.7 TH/MM3 Eosinophils # (Auto) 0.3 TH/MM3 Basophils # (Auto) 0.1 TH/MM3 CBC Comment AUTO DIFF Differential Total Cells Counted 100 Neutrophils % (Manual) 74 % Band Neutrophils % 12 % Lymphocytes % 7 % Monocytes % 6 % Eosinophils % 1 % Neutrophils # (Manual) 8.7 TH/MM3 Differential Comment FINAL DIFF MANUAL Platelet Estimate HIGH Platelet Morphology Comment NORMAL Laboratory Tests Test 05/08/17 05:00 Blood Urea Nitrogen 2 MG/DL Creatinine 0.38 MG/DL Random Glucose 78 MG/DL Calcium Level 8.1 MG/DL Sodium Level 142 MEQ/L Potassium Level 4.2 MEQ/L Chloride Level 110 MEQ/L Carbon Dioxide Level 23.8 MEQ/L Anion Gap 8 MEQ/L Estimat Glomerular Filtration Rate 198 ML/MIN Imaging Toe X-Ray 05/04/17 1904 Signed Impressions: Service Date/Time: Thursday, May 04, 2017 19:31 - CONCLUSION: 1. Soft tissue swelling involving the left third digit. 2. No acute fracture or dislocation. Leif Vallejo MD Chest X-Ray 05/04/17 1509 Signed Impressions: Service Date/Time: Thursday, May 04, 2017 15:33 - CONCLUSION: 1. Rotatory scoliosis. The lungs are clear. John Stephens MD Pelvis CT 05/04/17 0000 Signed Impressions: Service Date/Time: Thursday, May 04, 2017 17:50 - CONCLUSION: 1. Diffuse cellulitis of the left buttock as well as induration and swelling of the left perineum in the region of the perianal/perilabia tissues. Gynecologic evaluation would be helpful for further evaluation. No definite drainable abscess is confirmed. Leif Vallejo MD Physical Exam GENERAL: awake and alert, not in respiratory distress. SKIN: Warm and dry. Has scattered small eschar about pea-sized, with no evidence of infection, in BUE, face, upper back and BLE, improving. No ecchymoses and no evidence of embolic lesions. EYES: [place] conjunctiva. No petechia or hemorrhage. Pupils equal, round and reactive to light. Extraocular movements full and intact. No scleral icterus. No injection or drainage. EARS, NOSE AND THROAT: Nose without bleeding or purulent nasal discharge. Mucous membranes pink and moist. No oral lesions noted. No exudate. No oral thrush. NECK: Trachea midline. Supple and not tender, no meningeal signs CARDIOVASCULAR: Regular rate and rhythm. No murmurs, rubs or gallops heard RESPIRATORY: Clear to auscultation. Breath sounds equal bilaterally. No rales , wheezing or rhonchi ABDOMEN: Soft, non-tender, nondistended. Bowel sounds present and normoactive. No guarding. No rebound. No organomegaly. EXTREMITIES: No clubbing, cyanosis. There is a small ulcer on plantar 3rd toe , with mild swelling and erythema. No calf tenderness. Well perfused and warm. Perineum - has on open wound 1.5 x 1 inch size with iodophorm packing, erythema markedly improved, as well as induration BACK: L buttock very red, with edema and induration and towards perineum, she has an area with cluster of multiple draining small opening with copious serosanguineous cloudy fluid, no odor. NEUROLOGICAL: Non-focal PSYCHIATRIC: Calm, cooperative LINE: No evidence of infection Assessment & Plan Remarks IMPRESSION Possible sepsis due to significant cellulitis L buttock, with abscess, now spontaneously draining - fever, leukocytosis, tachycardia - resolved Buttock L/perineal abscess, C/S MRSA - S/P I and D - markedly improved L 3rd toe cellulitis Known IVDU PCN allergy (when she was very young), but patient states she has tolerated Keflex in the past RECOMMENDATION Continue IV vanco Start Doxycycline If continues to improve, should be able to D/C tomorrow and give 14 days oral Doxycycline Wound care per surgery Monitor progress Explained plan to the patient Argentina Miller MD May 09, 2017 13:29
[2017-05-09] MEDS: DOXYCYCLINE HYCLATE 100 MG TAB PO SCH (14:40)
[2017-05-09 16:00] VITALS: BP 104/67; PULSE 67; RESP 17; TEMP 97; O2SAT 99
[2017-05-09 18:47] VITALS: O2SAT 99
[2017-05-09 20:00] VITALS: BP 102/61; PULSE 65; RESP 18; TEMP 97.8; O2SAT 99
[2017-05-10] MEDS: KETOROLAC TROMETHAMINE 30 MG/ML (IVP) VIAL IV PUSH SCH ×2 (00:49→05:46)
[2017-05-10] MEDS: DOXYCYCLINE HYCLATE 100 MG TAB PO SCH (00:49)
[2017-05-10] MEDS: VANCOMYCIN INJ 1,250 MG in SODIUM CHLOR 0.9% 250 ML INJ 250 ML IV SCH (05:43)
[2017-05-10] MEDS ORDERED: PHARMACY ORDERED LAB ONE (05:45)
[2017-05-10] MEDS: NS + KCL 20 MEQ INJ 1,000 ML IV SCH (05:49)
[2017-05-10 08:00] VITALS: BP 106/63; PULSE 56; RESP 16; TEMP 97.4; O2SAT 97
[2017-05-10 08:31] LABS: VANCOMYCIN TROUGH 16.8 MCG/ML (5.0-10.0)
[2017-05-10] MEDS: SODIUM CHLORIDE 0.9% FLUSH 10 ML FLUSH IV FLUSH SCH (09:00)
[2017-05-10 09:04] VITALS: O2SAT 96
[2017-05-10] MEDS: POTASSIUM CHLORIDE 20 MEQ CONTROLLED RELEASE TAB PO SCH (09:34)
[2017-05-10] MEDS: DOCUSATE SODIUM 50 MG/SENNA 8.6 MG TAB PO SCH (09:35)
[2017-05-10] MEDS: FAMOTIDINE 20 MG TAB PO SCH (09:35)
[2017-05-10] MEDS: ENOXAPARIN SODIUM 40 MG/0.4 ML SYRINGE SQ SCH (09:35)
[2017-05-10] MEDS ORDERED: DOXY100T PO (11:19)
--- NOTE | 2017-05-10 11:21 | HHI.PR ---
Subjective Remarks doing great ready to go home instructed on wound care Objective Vitals Vital Signs Date Time Temp Pulse Resp B/P (MAP) Pulse Ox O2 Delivery O2 Flow Rate FiO2 05/10/17 09:04 96 Nasal Cannula 2.00 05/10/17 08:00 97.4 56 16 106/63 (77) 97 05/09/17 20:00 97.8 65 18 102/61 (75) 99 05/09/17 18:47 99 Nasal Cannula 2.00 05/09/17 16:00 97.0 67 17 104/67 (79) 99 05/09/17 12:00 97.6 54 18 101/78 (86) 100 I/O 05/09/17 05/09/17 05/09/17 05/10/17 05/10/17 05/10/17 07:00 15:00 23:00 07:00 15:00 23:00 Intake Total 1436.5 ml 195 ml 3455 ml 1707 ml Balance 1436.5 ml 195 ml 3455 ml 1707 ml Intake Oral 320 ml 1440 ml 800 ml IV Total 1116.5 ml 195 ml 2015 ml 907 ml # Voids 2 8 3 # Bowel Movements 0 0 0 Result Diagram: 05/08/17 0500 05/10/17 0625 Imaging Last Impressions Toe X-Ray 05/04/17 1904 Signed Impressions: Service Date/Time: Thursday, May 04, 2017 19:31 - CONCLUSION: 1. Soft tissue swelling involving the left third digit. 2. No acute fracture or dislocation. Leif Vallejo MD Chest X-Ray 05/04/17 1509 Signed Impressions: Service Date/Time: Thursday, May 04, 2017 15:33 - CONCLUSION: 1. Rotatory scoliosis. The lungs are clear. John Stephens MD Pelvis CT 05/04/17 0000 Signed Impressions: Service Date/Time: Thursday, May 04, 2017 17:50 - CONCLUSION: 1. Diffuse cellulitis of the left buttock as well as induration and swelling of the left perineum in the region of the perianal/perilabia tissues. Gynecologic evaluation would be helpful for further evaluation. No definite drainable abscess is confirmed. Leif Vallejo MD Objective Remarks skin- with multiple scab/ wounds, upper back and forearms and legs awake and alert, oriented x 3 anicteric lungs clear regular rhythm abdomen soft left gluteal area- - no necrotic tissue, no foul, healing well left 3rd toe with open wound/ilcer, dry, no erythema no swelling ++ DP, PT Procedures 06/07- I and D left buttock abscess A/P Problem List: (1) Sepsis ICD Code: A41.9 - Sepsis, unspecified organism (2) Cellulitis and abscess of buttock ICD Code: L02.31 - Cutaneous abscess of buttock; L03.317 - Cellulitis of buttock (3) Lower extremity cellulitis ICD Code: L03.119 - Cellulitis of unspecified part of limb (4) Hypokalemia ICD Code: E87.6 - Hypokalemia (5) IVDU (intravenous drug user) ICD Code: F19.90 - Other psychoactive substance use, unspecified, uncomplicated (6) Tobacco abuse ICD Code: Z72.0 - Tobacco use Assessment and Plan 32 years old IVDU Sepsis multiple sources- left gluteal cellulitis/left inner thigh abscess- S/P I and D 06/07- Improved Left foot cellulitis /3rd toe infected open wound- healed Multiple skin lesions/scab wounds- dry- back and forearms/legs Podiatry ff - cleared . OP ff up with Dr. Arias on DC ID ff- on Vancomycin .SAtarted on Doxycycline 05/09 x 2 weeks. will DC on this Substance abused induced mood disorder - now pleasant and cooperative yesterday was aggressive and reportedly expressed suicidal ideations to the father- now admits that a visitor "slipped" her something appreciate Dr. Andrews seeing aptient Hypokalemia:- Improved. KCL to bid. IVDU: w/ Cocaine/Heroin, last use 05/03 Ativan prn for withdrawal. counselled Tobacco Abuse: Counselled. NicoDerm/Ativan prn DVT prophylaxis patient up and ambulating around- room 06/07- d/w staff nurse- this am- found in her belonging- 2 syringes and a spoon with some white powder DC home today FF up with PCP- Dr. Francisco FF up with GS =- Dr Agudelo in 10 days Jeff Shields MD May 10, 2017 11:21
--- NOTE | 2017-05-10 11:23 | HHI.DS ---
Discharge Summary Admission Date May 04, 2017 at 19:24 Discharge Date: May 10, 2017 Admitting Diagnosis cellulitis left buttock (1) Sepsis ICD Code: A41.9 - Sepsis, unspecified organism (2) Cellulitis and abscess of buttock ICD Code: L02.31 - Cutaneous abscess of buttock; L03.317 - Cellulitis of buttock (3) Lower extremity cellulitis ICD Code: L03.119 - Cellulitis of unspecified part of limb (4) Hypokalemia ICD Code: E87.6 - Hypokalemia (5) IVDU (intravenous drug user) ICD Code: F19.90 - Other psychoactive substance use, unspecified, uncomplicated (6) Tobacco abuse ICD Code: Z72.0 - Tobacco use Procedures 06/07- I and D left buttock abscess Brief History - From Admission This is a 32-year-old female with a PMH of IVDU and Tobacco Abuse presented to the ER with complaints of significant pain and redness to her left buttock addition to similar symptoms involving her left foot and left hand. Admits to ongoing IVDU with Cocaine and Heroin. Reports subjective fever/chills. On arrival, BP 102/61, HR 100, O2 sat 100% on RA, Temp 102.0. WBC 22.4. K+ 2.8. CXR with no acute findings. CT Pelvis with diffuse cellulitis of left buttock and induration and swelling of left perineum. Toe X-ray was soft tissue swelling involving left third digit, no acute fracture noted. On exam, patient noted to have no significant involvement of the perineum worrisome for Damaso' s. S/p Blood Cultures, Vanc/Azactam/Flagyl in ER. CBC/BMP: 05/08/17 0500 05/10/17 0625 Significant Findings Laboratory Tests Test 05/08/17 05:00 05/08/17 13:56 05/10/17 06:25 Red Blood Count 3.53 MIL/MM3 (4.00-5.30) Hemoglobin 10.3 GM/DL (11.6-15.3) Hematocrit 30.5 % (35.0-46.0) Platelet Count 473 TH/MM3 (150-450) Neutrophils % (Manual) 74 % (16-70) Band Neutrophils % 12 % (0-6) Lymphocytes % 7 % (9-44) Neutrophils # (Manual) 8.7 TH/MM3 (1.8-7.7) Platelet Estimate HIGH (NORMAL) Blood Urea Nitrogen 2 MG/DL (7-18) Creatinine 0.38 MG/DL (0.50-1.00) 0.45 MG/DL (0.50-1.00) Calcium Level 8.1 MG/DL (8.5-10.1) Chloride Level 110 MEQ/L (98-107) Vancomycin Level Trough 11.7 MCG/ML (5.0-10.0) 16.8 MCG/ML (5.0-10.0) PE at Discharge skin- with multiple scab/ wounds, upper back and forearms and legs awake and alert, oriented x 3 anicteric lungs clear regular rhythm abdomen soft left gluteal area- - no necrotic tissue, no foul, healing well left 3rd toe with open wound/ilcer, dry, no erythema no swelling ++ DP, PT Pt update on day of discharge afebrile, pleasant and cooperative wound- clean dry, Hospital Course 32 years old IVDU Sepsis multiple sources- left gluteal cellulitis/left inner thigh abscess- S/P I and D 06/07- Improved Left foot cellulitis /3rd toe infected open wound- healed Multiple skin lesions/scab wounds- dry- back and forearms/legs Podiatry ff - cleared . OP ff up with Dr. Arias on DC ID ff- on Vancomycin .SAtarted on Doxycycline 05/09 x 2 weeks. will DC on this Substance abused induced mood disorder - now pleasant and cooperative yesterday was aggressive and reportedly expressed suicidal ideations to the father- now admits that a visitor "slipped" her something appreciate Dr. Andrews seeing aptient Hypokalemia:- Improved. KCL to bid. IVDU: w/ Cocaine/Heroin, last use 05/03 Ativan prn for withdrawal. counselled Tobacco Abuse: Counselled. NicoDerm/Ativan prn DVT prophylaxis patient up and ambulating around- room 06/07- d/w staff nurse- this am- found in her belonging- 2 syringes and a spoon with some white powder DC home today FF up with PCP- Dr. Francisco FF up with GS =- Dr Agudelo in 10 days Pt Condition on Discharge: Stable Discharge Disposition: Discharge Home Discharge Time: <= 30 minutes Discharge Instructions DIET: Follow Instructions for: As Tolerated, No Restrictions Speech Therapy-Diet Recommends: Regular Activities you can perform: Weight Bearing as Sabina Follow up Referrals: PCP Follow-up - 05/14/17 with [facility] - 10 Days with Grayson Agudelo MD New Medications: Doxycycline Hyclate (Doxycycline Hyclate) 100 Mg Tab 100 MG PO Q12H for Infection for 13 Days, #26 TAB 0 Refills Jeff Shields MD May 10, 2017 11:23
[2017-05-10 12:00] VITALS: BP 103/60; PULSE 64; RESP 16; TEMP 96.4; O2SAT 100
[2017-05-12] MEDS ORDERED: PHARMACY ORDERED LAB ONE (13:45)
== END 2017-05-10 13:56 | disposition home or self-care (01) | DRG 854 ==
LOC: NEPC 14:37 → NEDA 19:24 → N07A 21:02
PROVIDERS: ADMIT Internal Medicine; ATTEND Internal Medicine
PROC: 0J9C0ZZ Drainage of Pelvic Region Subcutaneous Tissue and Fascia, Open Approach (ICD-10-PCS; principal; 2017-05-08 09:09)
DX: A41.9 Sepsis, unspecified organism (principal); R45.851 Suicidal ideations; L02.214 Cutaneous abscess of groin; L02.416 Cutaneous abscess of left lower limb; K61.1 Rectal abscess; L03.116 Cellulitis of left lower limb; L02.31 Cutaneous abscess of buttock; L03.317 Cellulitis of buttock; L03.315 Cellulitis of perineum; L03.032 Cellulitis of left toe; E87.6 Hypokalemia; F17.210 Nicotine dependence, cigarettes, uncomplicated; F19.90 Other psychoactive substance use, unspecified, uncomplicated; F31.9 Bipolar disorder, unspecified; F43.24 Adjustment disorder with disturbance of conduct; Z78.1 Physical restraint status; Z90.710 Acquired absence of both cervix and uterus; L89.892 Pressure ulcer of other site, stage 2
CPT/HCPCS: 71020; 72193; 73660; 76937; 80048; 80053; 80178; 80202; 80307; 82565; 83605; 83735; 85007; 85025; 85027; 86403; 87040; 87070; 87147; 87186; 87205; 93005; 96361; 96374; J0131; J1100; J1170; J1650; J1885; J2060; J2250; J2270; J2405; J2710; J3010; J3370; J3475; J3480; J3486; J7030; J7050; J7120; Q9967

== ENCOUNTER 2017-05-24 15:17 | Emergency (ER) | payer MEDICAID ==
[~2017-05-24] VITALS: Ht 157.5 cm; Wt 52.0 kg
[~2017-05-24 15:17] MED LIST changes: -BUSP15TA PO; +DOXY100T PO; -METR-1 PO; -TRAZ50TA12 PO; -ZITHTAB PO; -ZOLO100T PO
[2017-05-24 15:18] VITALS: BP 108/66; PULSE 86; RESP 18; TEMP 97.7; O2SAT 99
--- NOTE | 2017-05-24 15:34 | PD ---
Physical Exam Time Seen by Provider: 15:30 Narrative 32-year-old female presents for recheck of cellulitis to her right knee area 4 days. Is currently taking clindamycin and Bactrim that she was prescribed 2 days ago when seen in [place]. Says the area has worsened and thinks it needs to be drained. History of IV drug use. Denies fever, vomiting. Patient seen in triage. Vital signs reviewed. Patient awaiting bed placement. Data Data Last Documented VS Vital Signs Date Time Temp Pulse Resp B/P (MAP) Pulse Ox O2 Delivery O2 Flow Rate FiO2 05/24/17 15:18 97.7 86 18 108/66 (80) 99 Room Air [facility] Supervised Visit with ANAND: Aisha Manzo May 24, 2017 15:34
[2017-05-24] MEDS ORDERED: DALBAVANCIN INJ 1,500 MG in DEXTROSE 5% IN WATE 500 ML INJ 500 ML IV STA ×2 (16:37)
[2017-05-24] MEDS ORDERED: ASP: Location of Dalbavancin administration OTHER ONE (16:45)
[2017-05-24] MEDS ORDERED: KETOROLAC TROMETHAMINE 30 MG/ML (IVP) VIAL IVP ONE (16:45)
[2017-05-24] MEDS ORDERED: ASP: Does not meet inpatient admission criteria OTHER ONE (16:45)
[2017-05-24] MEDS ORDERED: MISCELLANEOUS PHARMACY INFORMATION XX ONE (16:45)
[2017-05-24] MEDS ORDERED: LIDOCAINE HCL 1% 50 ML VIAL INFIL ONE (16:45)
[2017-05-24] MEDS ORDERED: ASP: No known hypersensitivity to Vanco, Telavancin, Dalbavancin OTHER ONE (16:45)
[2017-05-24] MEDS ORDERED: ASP: Only reason for admit - IV antibiotics OTHER ONE (16:45)
--- NOTE | 2017-05-24 17:07 | PD ---
HPI Chief Complaint: Skin Problem Time Seen by Provider: 16:13 Travel History International Travel<30 days: No Contact w/Intl Traveler<30days: No Traveled to known affect area: No History of Present Illness HPI 32-year-old female treated as IVDA presents to the emergency room for evaluation of right medial knee abscess and cellulitis. Patient went to the emergency room 4 days ago in [place] for the same and was given prescriptions for Bactrim and Keflex. She states she has been taking medications as prescribed and applying warm compresses but the symptoms seem to be worsening. States the redness hasn't worsened that the swelling significantly increased to her right lower extremity today. Pain is severe and worse when she touches it. Patient states it became puffy and she thinks it needs to be drained. She denies fever, chills, nausea, vomiting. PFSH Past Medical History Anxiety: Yes Depression: Yes Cancer: No Cardiovascular Problems: No Diabetes: No Diminished Hearing: No Endocrine: No Genitourinary: No Immune Disorder: No Musculoskeletal: No Neurologic: No Psychiatric: Yes Reproductive: No Respiratory: No ?: Unknown Menopausal: No : 4 Para: 1 Miscarriage: 1 : 2 Ectopic : No Ovarian Cysts: No Dilation and Curettage (D&C): No Tubal Ligation: No Past Surgical History Abdominal Surgery: Yes (HERNIA REPAIR) Cardiac Surgery: No Section: No Ear Surgery: No Endocrine Surgery: No Eye Surgery: No Genitourinary Surgery: No Gynecologic Surgery: Yes (2 ABORTIONS) Hysterectomy: No Oral Surgery: No Thoracic Surgery: No Other Surgery: Yes (HERNIA REPAIR) Social History Alcohol Use: Yes Tobacco Use: Yes Substance Use: Yes (IVDA) Allergies-Medications (Allergen,Severity, Reaction): Coded Allergies: penicillin G (Unverified Allergy, Intermediate, 05/24/17) hydromorphone (Verified Allergy, Unknown, hallucinations, 05/24/17) per pt's mother-pt has severe hallucinations when she takes dilaudid Reported Meds & Prescriptions Reported Meds & Active Scripts Active Doxycycline Hyclate 100 Mg Tab 100 Mg PO Q12H 13 Days Review of Systems Except as stated in HPI: all other systems reviewed are Neg Physical Exam Narrative GENERAL: Well-nourished, well-developed female in no acute distress. Afebrile. Ambulatory. SKIN: Focused skin assessment warm/dry. There is an indurated area in the right medial knee which measures about 4 cm in diameter. It is fluctuant but there is no pointing or drainage. There is a zone of inflammation around it but no lymphangitis. HEAD: Normocephalic. EYES: No scleral icterus. No injection or drainage. NECK: Supple, trachea midline. No JVD or lymphadenopathy. CARDIOVASCULAR: Regular rate and rhythm without murmurs, gallops, or rubs. RESPIRATORY: Breath sounds equal bilaterally. No accessory muscle use. MUSCULOSKELETAL: No cyanosis. 2+ pitting edema of the right lower extremity. Full range of motion of the right lower extremity. Data Data Last Documented VS Vital Signs Date Time Temp Pulse Resp B/P (MAP) Pulse Ox O2 Delivery O2 Flow Rate FiO2 05/24/17 15:18 97.7 86 18 108/66 (80) 99 Room Air Orders Orders Complete Blood Count With Diff (05/24/17 16:37) Comprehensive Metabolic Panel (05/24/17 16:37) Blood Culture (05/24/17 16:37) Case Management Consult (05/24/17 ) Asp:No Reaction To [place]/Vanc (Asp Crit (05/24/17 16:45) Asp: Does Not Meet Inpt Admit (Asp Crit: (05/24/17 16:45) Asp: Iv Antibiotics Admit Only (Asp Crit (05/24/17 16:45) Asp: Location Of [facility] Admin (Asp Crit: (05/24/17 16:45) [facility] Information ([facility] (05/24/17 16:45) Dal[place]avancin Inj (Dalvance Inj) (05/24/17 16:37) [facility] (05/24/17 16:37) Document (05/24/17 16:37) Measurements (05/24/17 16:37) Ketorolac Inj (Toradol Inj) (05/24/17 16:45) Lidocaine 1% Inj (50 Ml) (Xylocaine 1% I (05/24/17 16:45) Labs Laboratory Tests Test 05/24/17 17:10 White Blood Count 7.9 TH/MM3 Red Blood Count 3.76 MIL/MM3 Hemoglobin 10.9 GM/DL Hematocrit 33.0 % Mean Corpuscular Volume 87.6 FL Mean Corpuscular Hemoglobin 29.0 PG Mean Corpuscular Hemoglobin Concent 33.0 % Red Cell Distribution Width 14.5 % Platelet Count 404 TH/MM3 Mean Platelet Volume 8.6 FL Neutrophils (%) (Auto) 68.3 % Lymphocytes (%) (Auto) 23.0 % Monocytes (%) (Auto) 6.5 % Eosinophils (%) (Auto) 1.5 % Basophils (%) (Auto) 0.7 % Neutrophils # (Auto) 5.4 TH/MM3 Lymphocytes # (Auto) 1.8 TH/MM3 Monocytes # (Auto) 0.5 TH/MM3 Eosinophils # (Auto) 0.1 TH/MM3 Basophils # (Auto) 0.1 TH/MM3 CBC Comment DIFF FINAL Differential Comment Blood Urea Nitrogen 12 MG/DL Creatinine 0.68 MG/DL Random Glucose 70 MG/DL Total Protein 8.1 GM/DL Albumin 3.1 GM/DL Calcium Level 9.0 MG/DL Alkaline Phosphatase 81 U/L Aspartate Amino Transf (AST/SGOT) 12 U/L Alanine Aminotransferase (ALT/SGPT) 16 U/L Total Bilirubin 0.6 MG/DL Sodium Level 134 MEQ/L Potassium Level 4.1 MEQ/L Chloride Level 100 MEQ/L Carbon Dioxide Level 29.5 MEQ/L Anion Gap 5 MEQ/L Estimat Glomerular Filtration Rate 101 ML/MIN MDM Medical Decision Making Medical Screen Exam Complete: Yes Emergency Medical Condition: Yes Medical Record Reviewed: Yes Differential Diagnosis Failed outpatient therapy, abscess, cellulitis, IV drug abuse Narrative Course 32-year-old female presents to the emergency room for evaluation of right knee cellulitis that started about 4 days ago. Patient went to another emergency room 2 days ago and was given prescriptions for Bactrim and Keflex. She has been taking them as prescribed but the symptoms seem to be worsening. She denies systemic signs of infection. Physical exam reveals a large cellulitis with abscess to the right medial knee, that is fluctuant. Abscesses drained, see procedure note for details. Given worsening of symptoms. Patient has a good candidate for Dalvance. Dalvance protocol ordered. CBC and BMP unremarkable. Patient given effusion and told to follow up with her primary care physician. She understands and agrees to plan. Procedures Procedure Narrative INCISION AND DRAINAGE OF ABSCESS: The area was prepped and was sterilely draped. A subcutaneous wheal of 1% lidocaine with a total number 3 mL was used to anesthetize the area properly. A number 11 scalpel was used to make a 1 cm incision across the area of the abscess. The abscess was drained, complex loculations were broken down, and irrigated with normal saline. Cultures were obtained. Sterile dressing applied. Diagnosis Primary Impression: Cellulitis of right knee Referrals: Primary Care Physician Additional Instructions: You can stop taking Bactrim and Keflex. The medication you got today will last in your system for 2 weeks and take care of the infection. Follow up with a primary care physician. Return for worsening symptoms. Med/Other Pt SpecificInfo: Prescription(s) given Disposition: 01 DISCHARGE HOME Condition: Stable Angie Del Toro May 24, 2017 17:07
[2017-05-24 17:24] LABS: AUTOMATED NEUTROPHIL # 5.4 TH/MM3 (1.8-7.7); BASOPHIL # 0.1 TH/MM3 (0-0.2); BASOPHIL % 0.7 % (0.0-2.0); EOSINOPHIL # 0.1 TH/MM3 (0-0.4); EOSINOPHIL % 1.5 % (0.0-4.0); HEMO FLAGS DIFF FINAL; LYMPHOCYTE # 1.8 TH/MM3 (1.0-4.8); MEAN CELL VOLUME 87.6 FL (80.0-100.0); MONO % 6.5 % (0.0-8.0); NEUT % 68.3 % (16.0-70.0); PLATELET COUNT 404 TH/MM3 (150-450); RED BLOOD COUNT 3.76 MIL/MM3 (4.00-5.30); RED CELL DISTRIBUTION WIDTH 14.5 % (11.6-17.2); WHITE BLOOD COUNT 7.9 TH/MM3 (4.0-11.0)
[2017-05-24 17:47] LABS: ALT (GPT) 16 U/L (10-53); ANION GAP 5 MEQ/L (5-15); AST (GOT) 12 U/L (15-37); BICARBONATE 29.5 MEQ/L (21.0-32.0); BLOOD UREA NITROGEN 12 MG/DL (7-18); CHLORIDE 100 MEQ/L (98-107); GLOMERULAR FILTRATION RATE 101 ML/MIN (>89); POTASSIUM 4.1 MEQ/L (3.5-5.1); SODIUM (NA) 134 MEQ/L (136-145)
[2017-05-24 17:48] LABS: ALKALINE PHOSPHATASE 81 U/L (45-117); TOTAL BILIRUBIN ADULT 0.6 MG/DL (0.2-1.0)
[2017-05-24 19:55] VITALS: BP 110/70
== END 2017-05-24 20:25 | disposition home or self-care (01) ==
LOC: NEPD 15:17
DX: L03.115 Cellulitis of right lower limb (principal); F41.9 Anxiety disorder, unspecified; F32.9 Major depressive disorder, single episode, unspecified; F17.200 Nicotine dependence, unspecified, uncomplicated
CPT/HCPCS: 10060; 80053; 85025; 87040; 87070; 96365; 96375; 99284; J0875; J1885; J7060; 87205

== ENCOUNTER 2017-06-28 10:25 | Emergency (ER) | payer MEDICAID ==
[~2017-06-28] VITALS: Ht 157.5 cm; Wt 52.0 kg
[2017-06-28 10:26] VITALS: BP 121/75; PULSE 86; RESP 18; TEMP 98.6; O2SAT 100
--- NOTE | 2017-06-28 11:07 | PD ---
HPI . 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 Onset was a month ago while she was in rehabilitation. She was treated presumptively with doxycycline and clindamycin without relief. She reports a medical history of Trichomonas and bacterial vaginosis. She has been treated for that but has subsequently had sexual intercourse with the same partner. She states that no tests were run when she was in rehabilitation. PFSH Past Medical History Anxiety: Yes Depression: Yes Cancer: No Cardiovascular Problems: No Diabetes: No Diminished Hearing: No Endocrine: No Gastrointestinal Disorders: Yes Genitourinary: No Immune Disorder: No Musculoskeletal: No Neurologic: No Psychiatric: Yes Reproductive: No Respiratory: No ?: Unknown LMP: 2 MONTHS AGO Menopausal: No : 4 Para: 1 Miscarriage: 1 : 2 Ectopic : No Ovarian Cysts: No Dilation and Curettage (D&C): No Tubal Ligation: No Past Surgical History Abdominal Surgery: Yes (HERNIA REPAIR) Cardiac Surgery: No Section: No Ear Surgery: No Endocrine Surgery: No Eye Surgery: No Genitourinary Surgery: No Gynecologic Surgery: Yes (2 ABORTIONS) Hysterectomy: No Oral Surgery: No Thoracic Surgery: No Other Surgery: Yes (HERNIA REPAIR) Social History Alcohol Use: Yes Tobacco Use: Yes Substance Use: Yes (IVDA) Allergies-Medications (Allergen,Severity, Reaction): Coded Allergies: penicillin G (Unverified Allergy, Intermediate, 05/24/17) hydromorphone (Verified Adverse Reaction, Unknown, hallucinations, ) per pt's mother-pt has severe hallucinations when she takes dilaudid Reported Meds & Prescriptions Reported Meds & Active Scripts Active Doxycycline Hyclate 100 Mg Tab 100 Mg PO Q12H 13 Days Review of Systems Except as stated in HPI: all other systems reviewed are Neg Genitourinary: Positive: Discharge, No: Pelvic Pain Physical Exam Narrative GENERAL: Awake and alert and in no acute distress. SKIN: Warm and dry without rash or lesions. HEAD: Normocephalic/atraumatic. EYES: Pupils are equal. Extraocular movements are intact. NECK: Supple. CARDIOVASCULAR: Regular rate and rhythm. RESPIRATORY: Nonlabored respirations. MUSCULOSKELETAL: Atraumatic. NEUROLOGICAL: Nonfocal. PSYCHIATRIC: Appropriate mood and affect. Data Data Last Documented VS Vital Signs Date Time Temp Pulse Resp B/P (MAP) Pulse Ox O2 Delivery O2 Flow Rate FiO2 06/28/17 10:26 98.6 86 18 121/75 (90) 100 Room Air Orders Orders Gc And Chlamydia Pcr (06/28/17 10:49) Wet Prep Profile (06/28/17 10:49) Ed Urine Pregnancytest Poc (06/28/17 10:49) MDM Medical Decision Making Medical Screen Exam Complete: Yes Emergency Medical Condition: Yes Differential Diagnosis Differential diagnosis of vaginal discharge includes but is not limited to physiologic discharge, yeast infection, bacterial vaginosis, sexually transmitted disease. Narrative Course This patient presents with chief complaint of a green vaginal discharge. She has no pelvic pain. A pelvic exam will be done and a wet prep and GC chlamydial DNA probe will be sent. Cristina Diaz MD Jun 28, 2017 11:07
[2017-06-28] MEDS ORDERED: AZITHROMYCIN PWD FOR SUSP 1 GM PACKET PO ONE (11:15)
[2017-06-28] MEDS ORDERED: metroNIDAZOLE 500 MG TAB PO ONE ×2 (11:15→12:15)
[2017-06-28] MEDS ORDERED: LIDOCAINE HCL 1% 50 ML VIAL IM ONE (11:15)
[2017-06-28] MEDS ORDERED: cefTRIAXone 250 MG VIAL IM ONE (11:15)
--- NOTE | 2017-06-28 11:57 | PD ---
Physical Exam Date Seen by Provider: Jun 28, 2017 Time Seen by Provider: 11:00 Narrative 32 year female presents emergency department for evaluation of greenish yellow vaginal discharge that has been intermittent times one month. Patient was recently treated with rehabilitation inpatient for IV drug use. The patient was treated with doxycycline and clindamycin empirically for symptoms. They were unable to perform a physical exam and her facility. The patient states she did not get any relief from these antimicrobial therapies. Patient states she deals with bacterial vaginosis frequently. She also reports a history of Trichomonas. Patient states the last time she had unprotected sex with her partner was a couple weeks ago. She denies any nausea, vomiting, diarrhea or pelvic pain. Data Data Last Documented VS Vital Signs Date Time Temp Pulse Resp B/P (MAP) Pulse Ox O2 Delivery O2 Flow Rate FiO2 06/28/17 10:26 98.6 86 18 121/75 (90) 100 Room Air Orders Orders Gc And Chlamydia Pcr (06/28/17 10:49) Wet Prep Profile (06/28/17 10:49) Ed Urine Pregnancytest Poc (06/28/17 10:49) Metronidazole (Flagyl) (06/28/17 11:15) Azithromycin Powd Pack (Zithromax Powd P (06/28/17 11:15) Ceftriaxone Inj (Rocephin Inj) (06/28/17 11:15) Lidocaine 1% Inj (50 Ml) (Xylocaine 1% I (06/28/17 11:15) Metronidazole (Flagyl) (06/28/17 12:15) Labs Laboratory Tests Test 06/28/17 11:20 Clue Cells (Wet Prep) NONE SEEN Vaginal Trichomonas (Wet Prep) PRESENT Vaginal Yeast (Wet Prep) NONE SEEN MDM Supervised Visit with ANAND: Yes Differential Diagnosis Differential diagnoses include but not limited STI, PID, physiologic vaginal discharge, Trichomonas Narrative Course 32-year-old female presents to emergency room for evaluation of yellow-green vaginal discharge times one month. Pelvic exam was performed with nurse at bedside. Cultures were obtained and sent to lab. Patient is positive for Trichomonas. Patient treated empirically with an injection of Rocephin, azithromycin and Flagyl. Patient is discharged home with instructions to follow -up at the health department for further testing and to always practice safe sex. GENERAL: Well-nourished, well-developed 32-year-old female patient in no acute distress. Nontoxic appearing. SKIN: Focused skin assessment warm/dry. HEAD: Normocephalic. Atraumatic. EYES: No scleral icterus. No injection or drainage. NECK: Supple, trachea midline. No JVD or lymphadenopathy. CARDIOVASCULAR: Regular rate and rhythm without murmurs, gallops, or rubs. RESPIRATORY: Breath sounds equal bilaterally. No accessory muscle use. GENITOURINARY: Normal external genitalia mild erythema, without lesions. Vaginal vault significant amount of thick yellowish green discharge noted. Cervical os was closed. No cervical motion tenderness. Uterus nontender and nonenlarged. Bilateral adnexa nontender without masses. GASTROINTESTINAL: Abdomen soft, non-tender, nondistended. MUSCULOSKELETAL: No cyanosis, or edema. BACK: Nontender without obvious deformity. No CVA tenderness. Diagnosis Primary Impression: Trichomonas vaginitis Additional Impression: STI (sexually transmitted infection) Referrals: [facility] Dept. Patient Instructions: General Instructions, Safe Sex (ED), Trichomoniasis (ED) Additional Instruction: Please return to emergency department if your symptoms return or worsen. Follow up with your primary care provider. Follow-up with the [facility] Department for further testing. Always practice safe sex. Disposition: 01 DISCHARGE HOME Condition: Stable Stephanie Leonardo Jun 28, 2017 11:56
[2017-06-28 16:42] LABS: CHLAMYDIA PCR NOT DETECTED (NOT DETECT); NEISSERIA PCR NOT DETECTED (NOT DETECT)
== END 2017-06-28 12:53 | disposition home or self-care (01) ==
LOC: NEPD 10:25
DX: A59.01 Trichomonal vulvovaginitis (principal); A64 Unspecified sexually transmitted disease
CPT/HCPCS: 84703; 87210; 87491; 87591; 96372; 99284; J0696

== ENCOUNTER 2017-08-08 18:33 | Emergency (ER) | payer MEDICAID ==
[~2017-08-08] VITALS: Ht 157.5 cm; Wt 59.1 kg
[2017-08-08 18:36] VITALS: BP 120/77; PULSE 84; RESP 18; TEMP 98.7; O2SAT 99
--- NOTE | 2017-08-08 19:31 | PD ---
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 This is a 32-year-old female who presents for evaluation of vaginal discharge. Symptoms started 3-4 days ago. The discharge is itchy and uncomfortable, burning. Denies fevers, chills, flank pain. She reports that she has had trichomoniasis infections 3 times in the past few months and has been treated each time with a single dose of 2 g of Flagyl. Most recently patient was seen here in June for treatment of recurrent trichomoniasis. She claims that she has not been sexually active in the interim. She has no other complaints at this time. PFSH Past Medical History Anxiety: Yes Depression: Yes Cancer: No Cardiovascular Problems: No Diabetes: No Diminished Hearing: No Endocrine: No Gastrointestinal Disorders: Yes Genitourinary: No Immune Disorder: No Musculoskeletal: No Neurologic: No Psychiatric: Yes Reproductive: No Respiratory: No Tetanus Vaccination: Never Vaccinated Influenza Vaccination: Yes ?: Unknown LMP: 07/16/17 Menopausal: No : 4 Para: 1 Miscarriage: 1 : 2 Ectopic : No Ovarian Cysts: No Dilation and Curettage (D&C): No Tubal Ligation: No Past Surgical History Abdominal Surgery: Yes (HERNIA REPAIR) Cardiac Surgery: No Section: No Ear Surgery: No Endocrine Surgery: No Eye Surgery: No Genitourinary Surgery: No Gynecologic Surgery: Yes (2 ABORTIONS) Hysterectomy: No Oral Surgery: No Thoracic Surgery: No Other Surgery: Yes (HERNIA REPAIR) Social History Alcohol Use: Yes Tobacco Use: Yes Substance Use: Yes (IVDA) Allergies-Medications (Allergen,Severity, Reaction): Coded Allergies: penicillin G (Unverified Allergy, Intermediate, 05/24/17) hydromorphone (Verified Adverse Reaction, Unknown, hallucinations, ) per pt's mother-pt has severe hallucinations when she takes dilaudid Reported Meds & Prescriptions Reported Meds & Active Scripts Active Flagyl (Metronidazole) 500 Mg Tab 500 Mg PO QID 6 Days Doxycycline Hyclate 100 Mg Tab 100 Mg PO Q12H 13 Days Review of Systems Except as stated in HPI: all other systems reviewed are Neg Physical Exam Narrative GENERAL: Well-developed well-nourished female in no acute distress SKIN: Warm and dry. HEAD: Atraumatic. Normocephalic. EYES: Pupils equal and round. No scleral icterus. No injection or drainage. ENT: No nasal bleeding or discharge. Mucous membranes pink and moist. NECK: Trachea midline. No JVD. CARDIOVASCULAR: Regular rate and rhythm. No murmur appreciated. RESPIRATORY: No accessory muscle use. Clear to auscultation. Breath sounds equal bilaterally. GASTROINTESTINAL: Abdomen soft, non-tender, nondistended. Hepatic and splenic margins not palpable. Pelvic examination in the presence of a female nurse: Copious green/kang thin vaginal discharge noted. There is no cervical motion tenderness or adnexal tenderness. MUSCULOSKELETAL: No obvious deformities. No clubbing. No cyanosis. No edema. NEUROLOGICAL: Awake and alert. No obvious cranial nerve deficits. Motor grossly within normal limits. Normal speech. PSYCHIATRIC: Appropriate mood and affect; insight and judgment normal. Data Data Last Documented VS Vital Signs Date Time Temp Pulse Resp B/P (MAP) Pulse Ox O2 Delivery O2 Flow Rate FiO2 08/08/17 18:36 98.7 84 18 120/77 (91) 99 Room Air Orders Orders Gc And Chlamydia Pcr (08/08/17 19:18) Wet Prep Profile (08/08/17 19:18) Ed Urine Pregnancytest Poc (08/08/17 19:18) Azithromycin Powd Pack (Zithromax Powd P (08/08/17 20:45) Ceftriaxone Inj (Rocephin Inj) (08/08/17 20:45) Lidocaine 1% Inj (50 Ml) (Xylocaine 1% I (08/08/17 20:45) Metronidazole (Flagyl) (08/08/17 20:45) Ed Discharge Order (08/08/17 20:46) Labs Laboratory Tests Test 08/08/17 19:25 Clue Cells (Wet Prep) PRESENT Vaginal Trichomonas (Wet Prep) PRESENT Vaginal Yeast (Wet Prep) NONE SEEN MDM Medical Decision Making Medical Screen Exam Complete: Yes Emergency Medical Condition: Yes Medical Record Reviewed: Yes Differential Diagnosis Recurrent trichomoniasis, cervicitis, vaginitis, pelvic inflammatory disease, tubo-ovarian abscess Narrative Course 32-year-old female 3-4 days of vaginal discharge. She has had trichomoniasis 3 times in the past few months and this feels similar. She reportedly has not been sexually active since her last treatment in June. Her previous treatments consisted of single dose 2 g Flagyl. Today her wet prep is positive for trichomoniasis and clue cells. Given her recent refractory trichomoniasis, as per up-to-date the patient will be given a seven-day course of 2 g Flagyl daily, first dose given here. She will also be given azithromycin and Rocephin here pending chlamydia and culture results. She is stable for discharge. Diagnosis Primary Impression: Trichomoniasis Additional Impression: Bacterial vaginosis Additional Instructions: Medication as prescribed. Have all partners tested and treated at health department or primary care physician prior to relations. Return for any emergent medical conditions. Med/Other Pt SpecificInfo: Prescription(s) given Scripts Metronidazole (Flagyl) 500 Mg Tab 500 MG PO QID for Infection for 6 Days, TAB 0 Refills Prov: Cristina Diaz MD 08/08/17 Disposition: DISCHARGE HOME Condition: Stable Jaron Singh Aug 08, 2017 19:31
--- NOTE | 2017-08-08 20:16 | PD ---
Physical Exam Date Seen by Provider: Aug 08, 2017 Narrative This patient presents with a recurrent vaginal discharge. She has been treated here several times so Flagyl for Trichomonas. She states that her symptoms have recurred despite the fact that she has abstained from sexual intercourse. Data Data Last Documented VS Vital Signs Date Time Temp Pulse Resp B/P (MAP) Pulse Ox O2 Delivery O2 Flow Rate FiO2 08/08/17 18:36 98.7 84 18 120/77 (91) 99 Room Air Orders Orders Gc And Chlamydia Pcr (08/08/17 19:18) Wet Prep Profile (08/08/17 19:18) Ed Urine Pregnancytest Poc (08/08/17 19:18) Labs Laboratory Tests Test 08/08/17 19:25 MDM Supervised Visit with ANAND: Yes Narrative Course I, Dr. Diaz, have reviewed the advance practice practitioner's documentation and am in agreement, met with the patient face to face, made the diagnosis, and the medical decision making was done by me. *My assessment and Findings: Awake and alert and in no distress. Please see Jaron Singh PA-C's note for results of laboratory and radiographic evaluation, ED course, final diagnosis and disposition Cristina Diaz MD Aug 08, 2017 20:16
[2017-08-08] MEDS ORDERED: METR-1 PO (20:44)
[2017-08-08] MEDS ORDERED: LIDOCAINE HCL 1% 50 ML VIAL IM ONE (20:45)
[2017-08-08] MEDS ORDERED: metroNIDAZOLE 500 MG TAB PO ONE (20:45)
[2017-08-08] MEDS ORDERED: cefTRIAXone 250 MG VIAL IM ONE (20:45)
[2017-08-08] MEDS ORDERED: AZITHROMYCIN PWD FOR SUSP 1 GM PACKET PO ONE (20:45)
== END 2017-08-08 21:05 | disposition home or self-care (01) ==
LOC: NEPD 18:33
DX: A59.01 Trichomonal vulvovaginitis (principal); Z72.0 Tobacco use
CPT/HCPCS: 84703; 87210; 87491; 87591; 96372; 99284; J0696

== ENCOUNTER 2017-09-22 23:02 | Emergency (ER) | payer MEDICAID ==
[~2017-09-22] VITALS: Ht 157.5 cm; Wt 57.4 kg
[~2017-09-22 23:02] MED LIST changes: +METR-1 PO
[2017-09-22 23:20] VITALS: BP 149/89; PULSE 113; RESP 20; TEMP 98.8; O2SAT 97
== END 2017-09-22 23:38 | disposition left against medical advice (07) ==
LOC: PHED 23:02
DX: L02.416 Cutaneous abscess of left lower limb (principal)
CPT/HCPCS: 99281

== ENCOUNTER 2017-12-30 23:04 | Emergency (ER) | payer SELFPAY ==
[2017-12-30 23:16] VITALS: BP 131/60; PULSE 82; RESP 15; TEMP 99; O2SAT 98
[2017-12-30 23:50] LABS: AUTOMATED NEUTROPHIL # 3.2 TH/MM3 (1.8-7.7); BASOPHIL % 0.6 % (0.0-2.0); EOSINOPHIL % 0.7 % (0.0-4.0); HEMATOCRIT 36.2 % (35.0-46.0); HEMOGLOBIN 12.2 GM/DL (11.6-15.3); LYMPH % 37.4 % (9.0-44.0); LYMPHOCYTE # 2.3 TH/MM3 (1.0-4.8); MEAN CELL VOLUME 82.5 FL (80.0-100.0); MEAN CORPUSCULAR HEMOGLOBIN 27.8 PG (27.0-34.0); MEAN CORPUSCULAR HGB CONC 33.7 % (32.0-36.0); MONO % 8.4 % (0.0-8.0); MONOCYTE # 0.5 TH/MM3 (0-0.9); NEUT % 52.9 % (16.0-70.0); PLATELET COUNT 278 TH/MM3 (150-450); RED BLOOD COUNT 4.39 MIL/MM3 (4.00-5.30); RED CELL DISTRIBUTION WIDTH 17.7 % (11.6-17.2); WHITE BLOOD COUNT 6.1 TH/MM3 (4.0-11.0)
[2017-12-30 23:52] LABS: BILIRUBIN, URINE NEG (NEG); BLOOD, URINE NEG (NEG); GLUCOSE,URINE NEG (NEG); KETONE, URINE NEG (NEG); NITRITE,URINE NEG (NEG); SQUAMOUS EPITHELIAL CELL URINE 7 /hpf (0-5); URINE COLOR COLORLESS (YELLW/STRAW); URINE LEUKOCYTE ESTERASE NEG (NEG)
[2017-12-30] MEDS ORDERED: TRAZ300T2 PO (23:56)
[2017-12-30] MEDS ORDERED: BUSP15TA PO (23:56)
[2017-12-30] MEDS ORDERED: BUPR1MIS BUCCAL (23:56)
[2017-12-30] MEDS ORDERED: PROZ20CA11 PO (23:56)
--- NOTE | 2017-12-31 00:04 | PD ---
HPI Chief Complaint: Related Problem Time Seen by Provider: 23:27 Travel History International Travel<30 days: No Contact w/Intl Traveler<30days: No Traveled to known affect area: No History of Present Illness HPI The patient is 32. She is a 5 para 1 with 2 abortions and 1 miscarriage. Last menstruation was about 2 months ago. She complains of abdominal cramping and a dizzy sensation. She denies vaginal bleeding discharge. She is known to be . She reports discontinuing psych meds about a week ago due to the . She has been tapering Suboxone. PFSH Past Medical History Anxiety: Yes Depression: Yes Cancer: No Cardiovascular Problems: No Diabetes: No Diminished Hearing: No Endocrine: No Gastrointestinal Disorders: Yes Genitourinary: No Immune Disorder: No Musculoskeletal: No Neurologic: No Psychiatric: Yes Reproductive: No Respiratory: No Tetanus Vaccination: Unknown Influenza Vaccination: No ?: LMP: 10/30/17 Menopausal: No : 5 Para: 1 Miscarriage: 1 : 2 Ectopic : No Ovarian Cysts: No Dilation and Curettage (D&C): No Tubal Ligation: No Past Surgical History Abdominal Surgery: Yes (HERNIA REPAIR) Cardiac Surgery: No Section: No Ear Surgery: No Endocrine Surgery: No Eye Surgery: No Genitourinary Surgery: No Gynecologic Surgery: Yes (2 ABORTIONS) Hysterectomy: No Oral Surgery: No Thoracic Surgery: No Other Surgery: Yes (HERNIA REPAIR) Social History Alcohol Use: No Tobacco Use: Yes (1/2 pk per day) Substance Use: No (recovering) Allergies-Medications (Allergen,Severity, Reaction): Coded Allergies: penicillin G (Unverified Allergy, Intermediate, 12/30/17) hydromorphone (Verified Adverse Reaction, Unknown, hallucinations, 12/30/17 ) per pt's mother-pt has severe hallucinations when she takes dilaudid Reported Meds & Prescriptions Reported Meds & Active Scripts Active Reported Bunavail (Buprenorphine/Naloxone) 6.3-1 Mg Film 1 Film BUCCAL Trazodone (Trazodone HCl) 300 Mg Tab 300 Mg PO HS Buspirone (Buspirone HCl) 15 Mg Tab 15 Mg PO TID Prozac (Fluoxetine HCl) 20 Mg Cap 20 Mg PO DAILY Review of Systems Except as stated in HPI: all other systems reviewed are Neg General / Constitutional: No: Fever Physical Exam Narrative GENERAL: 32-year-old female pleasant well-nourished well-developed mild distress secondary to pain and/or anxiety Vital Signs Date Time Temp Pulse Resp B/P (MAP) Pulse Ox O2 Delivery O2 Flow Rate FiO2 12/30/17 23:16 99.0 82 15 131/60 (83) 98 SKIN: Warm and dry. HEAD: Atraumatic. Normocephalic. EYES: Pupils equal and round. No scleral icterus. No injection or drainage. ENT: No nasal bleeding or discharge. Mucous membranes pink and moist. NECK: Trachea midline. No JVD. CARDIOVASCULAR: Regular rate and rhythm. RESPIRATORY: No accessory muscle use. Clear to auscultation. Breath sounds equal bilaterally. GASTROINTESTINAL: Abdomen soft, non-tender, nondistended. Hepatic and splenic margins not palpable. MUSCULOSKELETAL: Extremities without clubbing, cyanosis, or edema. No obvious deformities. NEUROLOGICAL: Awake and alert. No obvious cranial nerve deficits. Motor grossly within normal limits. Five out of 5 muscle strength in the arms and legs. Normal speech. PSYCHIATRIC: Appropriate mood and affect; insight and judgment normal. Data Data Last Documented VS Vital Signs Date Time Temp Pulse Resp B/P (MAP) Pulse Ox O2 Delivery O2 Flow Rate FiO2 12/30/17 23:16 99.0 82 15 131/60 (83) 98 Orders Orders Beta Hcg (Quant/Titer) (12/30/17 23:32) Complete Blood Count With Diff (12/30/17 23:32) Comprehensive Metabolic Panel (12/30/17 23:32) Urinalysis - C+S If Indicated (12/30/17 23:32) Ed Urine Pregnancytest Poc (12/30/17 23:32) Us Pelvis (Ques Pr/Ect)W Trans (12/30/17 ) Ed Discharge Order (12/31/17 01:31) Labs Laboratory Tests Test 12/30/17 23:35 12/30/17 23:45 Urine Color COLORLESS Urine Turbidity CLEAR Urine pH 6.0 Urine Specific [place] 1.005 Urine Protein NEG mg/dL Urine Glucose (UA) NEG mg/dL Urine Ketones NEG mg/dL Urine Occult Blood NEG Urine Nitrite NEG Urine Bilirubin NEG Urine Urobilinogen LESS THAN 2.0 MG/DL Urine Leukocyte Esterase NEG Urine WBC 1 /hpf Urine Squamous Epithelial Cells 7 /hpf Microscopic Urinalysis Comment CULT NOT INDICATED White Blood Count 6.1 TH/MM3 Red Blood Count 4.39 MIL/MM3 Hemoglobin 12.2 GM/DL Hematocrit 36.2 % Mean Corpuscular Volume 82.5 FL Mean Corpuscular Hemoglobin 27.8 PG Mean Corpuscular Hemoglobin Concent 33.7 % Red Cell Distribution Width 17.7 % Platelet Count 278 TH/MM3 Mean Platelet Volume 9.0 FL Neutrophils (%) (Auto) 52.9 % Lymphocytes (%) (Auto) 37.4 % Monocytes (%) (Auto) 8.4 % Eosinophils (%) (Auto) 0.7 % Basophils (%) (Auto) 0.6 % Neutrophils # (Auto) 3.2 TH/MM3 Lymphocytes # (Auto) 2.3 TH/MM3 Monocytes # (Auto) 0.5 TH/MM3 Eosinophils # (Auto) 0.0 TH/MM3 Basophils # (Auto) 0.0 TH/MM3 CBC Comment DIFF FINAL Differential Comment Blood Urea Nitrogen 13 MG/DL Creatinine 0.67 MG/DL Random Glucose 91 MG/DL Total Protein 7.8 GM/DL Albumin 4.1 GM/DL Calcium Level 9.3 MG/DL Alkaline Phosphatase 62 U/L Aspartate Amino Transf (AST/SGOT) 13 U/L Alanine Aminotransferase (ALT/SGPT) 19 U/L Total Bilirubin 0.5 MG/DL Sodium Level 139 MEQ/L Potassium Level 3.5 MEQ/L Chloride Level 108 MEQ/L Carbon Dioxide Level 23.1 MEQ/L Anion Gap 8 MEQ/L Estimat Glomerular Filtration Rate 103 ML/MIN Human Chorionic Gonadotropin, Quant 2253 MIU/ML [facility] Medical Decision Making Medical Screen Exam Complete: Yes Emergency Medical Condition: Yes Medical Record Reviewed: Yes Differential Diagnosis IUP, UTI, ectopic , ov torsion, appendicitis, TOA, cervicitis, BV, Trichomoniasis, ov cyst, hernia, mittelschmerz, pain from menstruation Narrative Course CBC & BMP Diagram 12/30/17 23:45 Total Protein 7.8, Albumin 4.1, Calcium Level 9.3, Alkaline Phosphatase 62, Aspartate Amino Transf (AST/SGOT) 13 L, Alanine Aminotransferase (ALT/SGPT) 19, Total Bilirubin 0.5 Beta 2,253 UA: No UTI, NO blood Last Impressions Pelvis Ultrasound 12/30/17 0000 Signed Impressions: Service Date/Time: Sunday, December 31, 2017 00:36 - CONCLUSION: 1. Single small cystic structure in the endometrium without definite double decidual reaction. This nonspecific but could represent an early gestational sac. The study does not exclude ectopic . Followup beta hCG levels and/or ultrasound may be helpful. 2. Small benign cystic structures in the left ovary. No adnexal mass or free fluid visualized. Rolan Srinivasan MD The patient is resting comfortably and feels better, is alert and in no distress. The patients results and examination findings were discussed. The repeat examination is unremarkable and benign. The history, exam, diagnostic testing, and current condition do not suggest any significant pathology to warrant further testing, continued ED treatment, admission, or surgical evaluation at this point. The vital signs have been stable. The patient does not have uncontrollable pain, intractable vomiting, or other significant symptoms. The patient's condition is stable and appropriate for discharge. The patient will pursue further outpatient evaluation with a primary care physician or other designated or consulting physician as indicated in the discharge instructions. The patient expressed understanding and was agreeable with this plan. Diagnosis Primary Impression: Intrauterine Referrals: Shanae Alejo MD 2 days Biology Specimen Technician Med/Other Pt SpecificInfo: No Change to Meds Disposition: 01 DISCHARGE HOME Condition: Stable John Glynn MD December 31, 2017 00:04
[2017-12-31 00:10] LABS: ALBUMIN 4.1 GM/DL (3.4-5.0); AST (GOT) 13 U/L (15-37); BICARBONATE 23.1 MEQ/L (21.0-32.0); BLOOD UREA NITROGEN 13 MG/DL (7-18); CALCIUM 9.3 MG/DL (8.5-10.1); CHLORIDE 108 MEQ/L (98-107); CREATININE 0.67 MG/DL (0.50-1.00); GLOMERULAR FILTRATION RATE 103 ML/MIN (>89); GLUCOSE,RANDOM 91 MG/DL (74-106); SODIUM (NA) 139 MEQ/L (136-145)
[2017-12-31 00:11] LABS: ALT (GPT) 19 U/L (10-53)
[2017-12-31 00:27] LABS: ALKALINE PHOSPHATASE 62 U/L (45-117); TOTAL BILIRUBIN ADULT 0.5 MG/DL (0.2-1.0); TOTAL PROTEIN 7.8 GM/DL (6.4-8.2)
--- NOTE | 2017-12-31 01:22 | RADRPT ---
EXAM DATE/TIME: 12/31/2017 00:36 [facility] COMPARISON: US PELVIS (QUEST PREG/ECTOPIC) W/TRANSVAG, April 30, 2016, 13:20. INDICATIONS : Pelvic pain. LAB(S): Beta-hC MEDICAL HISTORY : . Hepatitis C. Bipolar disorder. Depression. Anxiety. Tobacco use. MRSA. SURGICAL HISTORY : Umbilical hernia repair. Abortions. ENCOUNTER: Initial ACUITY: 1 day PAIN SCORE: 6/10 LOCATION: Bilateral pelvis MEASUREMENTS: UTERUS: 8.6 x 5.2 x 4.6 cm ENDOMETRIAL STRIPE: 18 mm RIGHT OVARY: 2.1 x 2.1 x 2.7 cm LEFT OVARY: 4.0 x 2.9 x 1.8 cm FREE FLUID: No CROWN RUMP LENGTH: Nonvisualized FHR: Nonvisualized FINDINGS: UTERUS: The myometrium has homogeneous echotexture with a single small cystic structure in the endometrium me asuring up to approximately 3 x 6 x 3 cm. There is no definite double decidual reaction. There is no yolk sac or pole.. RIGHT OVARY: Ovary contains no mass or significant cystic lesion. LEFT OVARY: There are several small mildly complex cystic areas in the left ovary. The larger measures 2.3 x 1.2 x 1.5 cm and the smaller measures 1.0 x 1.1 x 0.9 cm. MISCELLANEOUS: No free fluid. CONCLUSION: 1. Single small cystic structure in the endometrium without definite double decidual reaction. This n onspecific but could represent an early gestational sac. The study does not exclude ectopic . Followup beta hCG levels and/or ultrasound may be helpful. 2. Small benign cystic structures in the left ovary. No adnexal mass or free fluid visualized. Rolan Srinivasan MD on December 31, 2017 at 1:16 Board Certified Radiologist. This report was verified electronically.
== END 2017-12-31 02:12 | disposition home or self-care (01) ==
LOC: NEPD 23:04
DX: O26.891 Other specified pregnancy related conditions, first trimester (principal); R10.2 Pelvic and perineal pain; R42 Dizziness and giddiness; F17.210 Nicotine dependence, cigarettes, uncomplicated; Z79.891 Long term (current) use of opiate analgesic
CPT/HCPCS: 76700; 76817; 80053; 81001; 84702; 84703; 85025; 99284